=== PATIENT | male | born 1965 | race Caucasian/White ===

== ENCOUNTER → 2020-04-19 13:23 | Outpatient (BNVA) | payer OTHER, SELFPAY | PROVIDERS: PCP Physician Assistant; Visit Provider Urology | DX: Z76.89 Persons encountering health services in other specified circumstances (principal) ==

== ENCOUNTER → 2020-11-01 11:41 | Outpatient (BNVA) | payer OTHER, SELFPAY | PROVIDERS: PCP Physician Assistant; Visit Provider Internal Medicine Pulmonary Disease | DX: J44.9 Chronic obstructive pulmonary disease, unspecified (principal); J44.1 Chronic obstructive pulmonary disease with (acute) exacerbation | CPT/HCPCS: 99212 ==

== ENCOUNTER → 2021-02-27 14:28 | Outpatient (BNVA) | payer OTHER, SELFPAY | PROVIDERS: PCP Physician Assistant; Visit Provider Internal Medicine | DX: J44.1 Chronic obstructive pulmonary disease with (acute) exacerbation (principal); J44.9 Chronic obstructive pulmonary disease, unspecified | CPT/HCPCS: 99212 ==

== ENCOUNTER 2021-05-21 08:35 | Outpatient (REF) | payer OTHER, SELFPAY ==
[2021-05-26 17:51] LABS: Testosterone, Free 7.1 pg/mL (35.0-155.0); Testosterone, Total 85 ng/dL (250-1100)
== END 2021-05-21 08:36 | disposition home or self-care (01) ==
LOC: HO.LAB 08:35
PROVIDERS: PCP Physician Assistant; Visit Provider Urology
DX: E29.1 Testicular hypofunction (principal); N30.10 Interstitial cystitis (chronic) without hematuria
CPT/HCPCS: 36415; 84402; 84403; 99202

== ENCOUNTER 2021-09-24 06:14 | Outpatient (REF) | payer OTHER, SELFPAY ==
[2021-09-24 06:27] LABS: MANUAL DIFF FLAG NO
[2021-09-24 07:27] LABS: Basophils Absolute Auto 0.1 X10*3/uL (0.0-0.2); Eosinophils Absolute Auto 0.4 X10*3/uL (0.0-0.4); Eosinophils Percent Auto 5.5 % (0-4); Hematocrit 50.7 % (42.0-52.0); Hemoglobin 16.5 g/dl (14.0-18.0); Imm Gran Abs Auto 0.02 X10*3/uL (0.00-0.03); Imm Gran Pct Auto 0.3 % (0.0-0.4); Lymphocytes Absolute Auto 2.4 X10*3/uL (1.2-4.9); Lymphocytes Percent Auto 30.9 % (20-40); Mean Corpuscular HGB Conc 32.5 g/dl (31.0-36.0); Mean Corpuscular Hemoglobin 28.1 pg (27.0-33.0); Mean Corpuscular Volume 86.2 fL (80.0-98.0); Mean Platelet Volume 11.2 fL (9.4-12.4); Monocytes Absolute Auto 0.8 X10*3/uL (0.1-1.2); Monocytes Percent Auto 10.1 % (2-11); Neutrophils Percent Auto 52.2 % (45-73); Platelet Count 194 X10*3/uL (160-400); Red Blood Count 5.88 X10*6/uL (4.60-5.80); Red Cell Distribution Width 14.3 % (11.0-16.0); White Blood Count 7.6 X10*3/uL (4.8-10.8)
[2021-09-24 07:33] LABS: Estimated Average Glucose 126 mg/dL
[2021-09-24 08:08] LABS: Alanine Aminotransferase 127 U/L (0-40); Albumin Level 4.6 g/dL (3.5-5.0); Alkaline Phosphatase 103 U/L (39-117); Anion Gap 13 (12-20); Aspartate Amino Transferase 61 U/L (5-37); Bilirubin Total 0.5 mg/dL (0.0-1.0); Blood Urea Nitrogen 15 mg/dL (9-16); Calcium 9.2 mg/dL (8.4-10.2); Carbon Dioxide 28 mmol/L (22-29); Chloride 101 mmol/L (96-108); Estimated Glomerular Filt Rate > 60; Glucose Random 133 mg/dL (60-115); Potassium 4.3 mmol/L (3.3-5.1); Sodium 138 mmol/L (135-145); Total Protein 7.5 g/dL (6.5-8.0)
[2021-09-24 08:42] LABS: Free T4 (Free Thyroxine) 1.16 ng/dL (0.71-1.85); Thyroid Stimulating Hormone 2.46 uIU/mL (0.32-4.0)
== END 2021-09-24 06:15 | disposition home or self-care (01) ==
LOC: HO.LAB 06:14
PROVIDERS: PCP Physician Assistant; Visit Provider Nurse Practitioner Family
DX: R11.0 Nausea (principal); Z13.1 Encounter for screening for diabetes mellitus; Z13.29 Encounter for screening for other suspected endocrine disorder
CPT/HCPCS: 36415; 80053; 83036; 84439; 84443; 85025

== ENCOUNTER → 2022-05-19 11:22 | Outpatient (BNVA) | payer OTHER, SELFPAY | PROVIDERS: PCP Physician Assistant; Visit Provider Nurse Practitioner Family | DX: E29.1 Testicular hypofunction (principal); N40.0 Benign prostatic hyperplasia without lower urinary tract symptoms; Z79.899 Other long term (current) drug therapy | CPT/HCPCS: 99212 ==

== ENCOUNTER 2022-06-13 08:51 | Outpatient (REF) | payer OTHER, SELFPAY ==
--- NOTE | ~2022-06-13 | US_ITS ---
EXAMINATION: US ABDOMEN COMPLETE CLINICAL INFORMATION: Abnormal levels of other serum enzymes. COMPARISON: X-ray abdomen KUB 07/04/2017. CT abdomen and pelvis 06/26/2017. TECHNIQUE: Real-time imaging of the abdominal viscera. Technically difficult study secondary to bowel gas and body habitus. FINDINGS: PANCREAS: The visualized portions of the pancreas are unremarkable but a large portion of the body and tail obscured by bowel gas. ABDOMINAL AORTA: The proximal, mid, and distal segments are normal in caliber. INFERIOR VENA CAVA: Visualized portions are normal. LIVER: Liver appears enlarged and demonstrates increased echogenicity consistent with hepatic steatosis. The liver contour is normal. A benign 1.4 cm simple cyst is noted in the left lobe. No solid hepatic masses. There is no intrahepatic biliary duct dilatation seen. GALLBLADDER: Surgically absent. COMMON BILE DUCT: Normal in caliber measuring 1.1 cm in diameter. RIGHT KIDNEY: Normal. No hydronephrosis. No renal calculi or focal parenchymal lesions. The kidney measures 10.1 cm in maximum dimension. LEFT KIDNEY: Normal. No hydronephrosis. No renal calculi or focal parenchymal lesions. The kidney measures 11.5 cm in maximum dimension. SPLEEN: Normal. The spleen measures 11.5 cm in maximum dimension. FREE FLUID: None. US/US abdomen complete IMPRESSION: Enlarged fatty liver.
== END 2022-06-13 08:52 | disposition home or self-care (01) ==
LOC: HO.US 08:51
PROVIDERS: PCP Physician Assistant; Visit Provider Physician Assistant
DX: R74.8 Abnormal levels of other serum enzymes (principal)
CPT/HCPCS: 76700

== ENCOUNTER 2022-07-22 12:27 | Outpatient (REF) | payer OTHER, SELFPAY ==
[2022-07-22 13:12] LABS: Hematocrit 47.5 % (42.0-52.0); Hemoglobin 15.1 g/dl (14.0-18.0); Mean Corpuscular HGB Conc 31.8 g/dl (31.0-36.0); Mean Corpuscular Volume 84.8 fL (80.0-98.0); Mean Platelet Volume 10.2 fL (9.4-12.4); Platelet Count 235 X10*3/uL (160-400); Red Cell Distribution Width 13.5 % (11.0-16.0)
[2022-07-22 13:35] LABS: Estimated Average Glucose 134 mg/dL; Hemoglobin A1c % 6.3 %
[2022-07-22 14:04] LABS: Alanine Aminotransferase 41 U/L (0-40); Albumin Level 4.5 g/dL (3.5-5.0); Alkaline Phosphatase 103 U/L (39-117); Anion Gap 14 (12-20); Aspartate Amino Transferase 35 U/L (5-37); Bilirubin Total 0.5 mg/dL (0.0-1.0); Blood Urea Nitrogen 14 mg/dL (9-16); Calcium 9.1 mg/dL (8.4-10.2); Carbon Dioxide 27 mmol/L (22-29); Chloride 103 mmol/L (96-108); Cholesterol 168 mg/dL; Estimated Glomerular Filt Rate > 60; Glucose Random 97 mg/dL (60-115); HDL Cholesterol 37 mg/dL; LDL Cholesterol Calculated 101 mg/dl; Potassium 4.6 mmol/L (3.3-5.1); Sodium 139 mmol/L (135-145); Total Protein 7.3 g/dL (6.5-8.0); Triglycerides 152 mg/dL
[2022-07-22 14:20] LABS: TSH reflex Free T4 1.62 uIU/mL (0.32-4.0)
== END 2022-07-22 12:28 | disposition home or self-care (01) ==
LOC: HO.LAB 12:27
PROVIDERS: Absent Provider Nurse Practitioner Family; PCP Physician Assistant; Visit Provider Nurse Practitioner Family
DX: Z13.220 Encounter for screening for lipoid disorders (principal); Z13.29 Encounter for screening for other suspected endocrine disorder; E29.1 Testicular hypofunction
CPT/HCPCS: 36415; 80053; 80061; 83036; 84402; 84403; 84443; 85027

== ENCOUNTER 2022-07-23 16:20 | Outpatient (REF) | payer OTHER, SELFPAY ==
[2022-07-29 11:28] LABS: Testosterone, Free 87.1 pg/mL (35.0-155.0); Testosterone, Total 569 ng/dL (250-1100)
== END 2022-07-23 16:21 | disposition home or self-care (01) ==
LOC: HO.LAB 16:20
PROVIDERS: Visit Provider Nurse Practitioner Family
DX: E29.1 Testicular hypofunction (principal)
CPT/HCPCS: 36415; 84402; 84403

== ENCOUNTER → 2022-07-30 15:29 | Outpatient (BNVA) | payer OTHER, SELFPAY | PROVIDERS: PCP Physician Assistant; Visit Provider Nurse Practitioner Family | DX: E29.1 Testicular hypofunction (principal); R35.1 Nocturia; N40.0 Benign prostatic hyperplasia without lower urinary tract symptoms; N30.10 Interstitial cystitis (chronic) without hematuria; U07.0 Vaping-related disorder; Z87.891 Personal history of nicotine dependence | CPT/HCPCS: 99212 ==

== ENCOUNTER 2022-08-20 08:02 | Outpatient (REF) | payer OTHER, SELFPAY ==
--- NOTE | 2022-08-20 09:32 | PFT_ITS ---
INDICATION: COPD. SPIROMETRY: FEV1 to FVC prebronchodilator 67%, postbronchodilator 73% with an FEV1 of 1.13 L, which is 90% predicted. An FVC of 4.28 L, which is 94% predicted. There was a significant response to bronchodilators noted. Maximum voluntary ventilation 46% predicted. LUNG VOLUMES: Patient had hard time completing. Expiratory reserve volume noted to be 68% predicted. DIFFUSION CAPACITY: DLCO 75% predicted. COMPARISONS: None. INTERPRETATION: There appears to be reversible obstructive ventilatory defect consistent with diagnosis of asthma. The patient likely carries a diagnosis of asthma-COPD overlap syndrome. There was a significant response to bronchodilators noted and significant small airways disease. There is also a [id number] decrease in the maximum voluntary ventilation secondary to likely deconditioning, but also likely a component of air trapping. Again, the lung volumes cannot be completed as the patient could not complete the maneuver and there was a mild diffusion impairment. Clinical correlation warranted. MD CLAY Law/MODIsh / [id number]
== END 2022-08-20 08:03 | disposition home or self-care (01) ==
LOC: HO.RESP 08:02
PROVIDERS: PCP Physician Assistant; Visit Provider Internal Medicine Pulmonary Disease
DX: J44.9 Chronic obstructive pulmonary disease, unspecified (principal)
CPT/HCPCS: 94010; 94729

== ENCOUNTER 2022-08-21 | Outpatient (REF) | payer OTHER, SELFPAY | END 2022-08-21 00:01 | LOC: CF | PROVIDERS: PCP Physician Assistant; Visit Provider Internal Medicine Pulmonary Disease | DX: J44.9 Chronic obstructive pulmonary disease, unspecified (principal); R91.8 Other nonspecific abnormal finding of lung field | CPT/HCPCS: 99212 ==

== ENCOUNTER 2024-01-14 10:55 | Outpatient (AMB) | payer OTHER, SELFPAY ==
--- OUTSIDE RECORDS SUMMARY | 2024-01-14 10:57 | XMS_ITS | Continuity of Care Document ---
Author Organization [facility] Address [address] [place] [address]- Care Team Providers Care Sawmill Tally Clerk Name Role Phone Robb Correia Primary Care Physician [place] [facility] [place]09/20 [facility] [address] [place] [id number] Allergies, Adverse Reactions, Alerts Substance Reaction Severity Status NKA Active Immunizations Given and Recorded Vaccine Date Status Refusal Reason pneumococcal 23-valent vaccine 04/21/15 Given Medications 20mg/0.3mL 20mg/0.3mL, See Instructions, # 1 kit, Refills 0, Tot. Refills 0, Maintenance, 20mg/0.3mL in a 0.6mL dropper - Fill 0.6 mL dropper and add to prep 12 times for a total of 480mg of simethicone, 08/02/20 10:47:00 EDT, Supply, 172, cm, 05/29/20 10:02:00... Start Date: 08/02/20 Status: Ordered atenolol 25 mg oral tablet 25 mg, 1, tablet, By Mouth, Daily, Refills 0, Maintenance, 11/22/15 17:39:32 Start Date: 11/22/15 Status: Ordered lisinopril 5 mg oral tablet 5 mg, 1, tablet, By Mouth, Daily, Refills 0, Maintenance, 11/22/15 17:39:49 Start Date: 11/22/15 Status: Ordered pantoprazole 40 mg oral delayed release tablet 1 tablet = 40 mg, By Mouth, Daily, # 30 tablet, 3 Refills, Maintenance, 05/29/20 20:07:00 EST, CR Tablet, 172, cm, 05/29/20 10:02:00 EST, Height, 82.5, kg, 05/29/20 10:02:00 EST, Dry Weight Start Date: 05/29/20 Stop Date: 09/26/20 Status: Ordered PEG-3350 with Electrolytes (Eqv-NuLYTELY) oral powder for reconstitution See Instructions, as directed, # 2 each, 0 Refills, Maintenance, 08/02/20 10:47:00 EDT, [facility]/pharmacy #[id number], Ok to sub for any gallon prep; NEEDS TWO (2) GALLONS; procedure is 5/6, as directed, 172, cm, 05/29/20 10:02:00 EST, Height, 82.5, kg, 05/29/20... Start Date: 08/02/20 Status: Ordered polyethylene glycol 3350 oral powder for reconstitution = 17 Gm, By Mouth, Daily, dissolve in water before taking, # 255 Gm, 0 Refills, Maintenance, 10/05/17 9:24:09 EDT, REC Powder Start Date: 10/05/17 Status: Ordered ProAir HFA 90 mcg/inh inhalation aerosol with adapter 2, puffs, Inhalation, Every 4 hours, PRN, # 8.5 Gm, Refills 0, Maintenance, 02/07/17 19:57:43, Aerosol Start Date: 02/07/17 Status: Ordered testosterone 50 mg/5 g (1%) transdermal gel 1 each, Topically, Daily in AM, 2 pumps each arm, # 30 each, 0 Refills, Maintenance, 05/29/20 9:56:00 EST, Gel, Partial fill upon patient request if the prescription is for a schedule II opioid drug. Start Date: 05/29/20 Status: Ordered Wellbutrin SR 150 mg/12 hours oral tablet, extended release 1 tablet = 150 mg, By Mouth, 2 times a day, # 60 tablet, 0 Refills, Maintenance, 04/12/19 15:54:00 EST, ER Tablet Start Date: 04/12/19 Status: Ordered Social History Social History Type Response Smoking Status Current every day pierre hutchinson; Tobacco use times per day: 1/2ppd cigarettes; entered on: 11/22/15 Sex
--- OUTSIDE RECORDS SUMMARY | 2024-01-14 10:57 | XMS_ITS | Continuity of Care Document ---
Author Organization [facility] Address [address] [place] [address] [address] [place] [address]- Care Team Providers Care Track Greaser Name Role Phone Robb Correia Primary Care Physician [phone] Encounter [facility] Date(s): 04/12/19 - 04/19/19 [facility] [address] [place] [address]- [place] States Encounter Diagnosis Abdominal pain in male(Discharge Diagnosis) - 04/19/19 Attending Physician: Spencer Lynch MD Referring Physician: Robb Correia Allergies, Adverse Reactions, Alerts Substance Reaction Severity Status gabapentin Active benzodiazepines go crazy Persistent Moderate Activ e Ativan dementia Active Immunizations Given and Recorded Vaccine Date Status Refusal Reason pneumococcal 23-valent vaccine 04/21/15 Given Medications atenolol 25 mg oral tablet 25 mg, 1, tablet, By Mouth, Daily, Refills 0, Maintenance, 11/22/15 17:39:32 Start Date: 11/22/15 Status: Ordered lisinopril 5 mg oral tablet 5 mg, 1, tablet, By Mouth, Daily, Refills 0, Maintenance, 11/22/15 17:39:49 Start Date: 11/22/15 Status: Ordered Nexium 20 mg oral enteric coated capsule 2 capsule = 40 mg, By Mouth, Daily, # 60 capsule, 1 Refills, Maintenance, 04/12/19 16:15:00 EST, ECCapsule, [id number], 172, cm, 04/12/19 15:50:00 EST, Height Start Date: 04/12/19 Status: Ordered polyethylene glycol 3350 oral powder for reconstitution = 17 Gm, By Mouth, Daily, dissolve in water before taking, # 255 Gm, 0 Refills, Maintenance, 10/05/17 9:24:09 EDT, REC Powder Start Date: 10/05/17 Status: Ordered Prilosec 20 mg oral enteric coated capsule 1 capsule = 20 mg, By Mouth, 2 times a day, # 30 capsule, 0 Refills, Maintenance, 02/26/11 12:43:23, EC Capsule Start Date: 02/26/11 Status: Ordered ProAir HFA 90 mcg/inh inhalation aerosol with adapter 2, puffs, Inhalation, Every 4 hours, PRN, # 8.5 Gm, Refills 0, Maintenance, 02/07/17 19:57:43, Aerosol Start Date: 02/07/17 Status: Ordered Reglan 10 mg oral tablet 1 tablet = 10 mg, By Mouth, 4 times a day, # 120 tablet, 1 Refills, Acute 05/13/19 16:15:00 EST, 04/12/19 16:15:00 EST, Tablet, [facility]/pharmacy #[id number], 172, cm, 04/12/19 15:50:00 EST, Height Start Date: 04/12/19 Stop Date: 05/13/19 Status: Ordered Senna 8.6 mg oral tablet 17.2 mg, 2, tablet, By Mouth, 2 times a day, PRN, # 100 tablet, Refills 1, Tot. Refills 1, Acute, for constipation, 05/13/20 16:16:00 EST, 04/12/19 16:15:00 EST, Route to Pharmacy Electronically, [facility]/pharmacy #[id number] Tablet, 172, cm, 04/12/19 15:50:00 E... Start Date: 04/12/19 Stop Date: 05/13/20 Status: Ordered Wellbutrin SR 150 mg/12 hours oral tablet, extended release 1 tablet = 150 mg, By Mouth, 2 times a day, # 60 tablet, 0 Refills, Maintenance, 04/12/19 15:54:00 EST, ER Tablet Start Date: 04/12/19 Status: Ordered Zantac 300 oral tablet 1 tablet = 300 mg, By Mouth, Daily at bedtime, 0 Refills, Maintenance, 04/16/15 16:12:02 Start Date: 04/16/15 Status: Ordered Problem List Diagnosis Diagnosis Type Effective Dates Health Status Cl inical Service Informant Abdominal pain in male Discharge Diagnosis 04/19/19 Vital Signs Most recent to oldest [Reference Range]: 1 Height 172 cm (04/12/19 3:50 PM) Oxygen Saturation [94-100 %] 97 % (04/12/19 3:50 PM) Pulse Rate [55-90 bpm] 92 bpm *H* (04/12/19 3:50 PM) Blood Pressure [90-138/55-84 mm Hg] 130/ 88mm Hg (04/12/19 3:50 PM) Temperature [96.8-100.4 DegF] 98.9 DegF (04/12/19 3:50 PM) Mode of Delivery (Oxygen) Room air (04/12/19 3:50 PM) Blood pressure sites Arm, right (04/12/19 3:50 PM) Temperature Route Oral (04/12/19 3:50 PM) Social History Social History Type Response Smoking Status Current every day pierre hutchinson; Tobacco use times per day: 1/2ppd cigarettes; entered on: 11/22/15 Sex
--- OUTSIDE RECORDS SUMMARY | 2024-01-14 10:57 | XMS_ITS | Continuity of Care Document ---
Author Organization [facility] Address [address] [place] [address]- Care Team Providers Care Hydrogeology Professor Name Role Phone Robb Correia Primary Care Physician Encounter [facility] [place] Date(s): 02/28/20 - 03/29/20 [facility] [address] [place] [id number] Attending Physician: Malou Rich Admitting Physician: Admtr, Malou Referring Physician: Admtr, Ar8 Allergies, Adverse Reactions, Alerts Substance Reaction Severity [...] EST, Height Start Date: 04/12/19 Status: Ordered omeprazole 40 mg oral enteric coated capsule 1 capsule = 40 mg, By Mouth, 2 times a day, # 60 capsule, 0 Refills, Maintenance, 02/28/20 14:55:00EST, EC Capsule, [id number], Partial fill upon patient request, 172, cm, 02/28/20 13:21:00 EST, Height Start Date: 02/28/20 Stop Date: 03/29/20 Status: Ordered Plenvu oral powder for reconstitution See Instructions, split dose 1/2 dose day before 1/2 dose day of procedure (7hrs before procedure),# 1,000 mL, 0 Refills, Maintenance, 02/28/20 14:55:00 EST, [facility]/pharmacy #[id number], Partial fill upon patient request, split dose ; 1/2 dose day before;... Start Date: 02/28/20 Status: Ordered polyethylene glycol 3350 oral powder [...] 19:57:43, Aerosol Start Date: 02/07/17 Status: Ordered Senna 8.6 mg oral tablet 17.2 mg, 2, tablet, By Mouth, 2 times a day, PRN, # 100 tablet, Refills 1, Tot. Refills 1, Acute, as needed for constipation, 07/18/20 10:30:00 EDT, 07/18/19 16:16:00 EDT, Route to Pharmacy Electronically, [facility]/pharmacy #[id number] Tablet, 172, cm, 05/03/19... Start Date: 07/18/19 Stop Date: 07/18/20 Status: Ordered Senna 8.6 mg oral tablet 17.2 mg, 2, tablet, By Mouth, 2 times a day, PRN, # 100 tablet, Refills 1, Tot. Refills 1, Acute, for constipation, 05/13/20 16:16:00 EST, 04/12/19 16:15:00 EST, Route to Pharmacy Electronically, [facility]/pharmacy #[id number] Tablet, 172, cm, 04/12/19 15:50:00 E... Start [...] 04/16/15 16:12:02 Start Date: 04/16/15 Status: Ordered Social History Social History Type Response Smoking Status Current every day pierre hutchinson; Tobacco use times per day: 1/2ppd cigarettes; entered on: 11/22/15 Sex
--- OUTSIDE RECORDS SUMMARY | 2024-01-14 10:57 | XMS_ITS | Continuity of Care Document ---
Author Organization [facility] Address [address] [place] [address]- Care Team Providers Care Certified Registered Nurse Anesthetist Name Role Phone Robb Correia Primary Care Physician [phone] Encounter [facility] Date(s): 04/07/19 - 04/07/[address] [address]- [facility] Discharge Disposition: A-D/C Home Attending Physician: Niko Dorantes MD Admitting Physician: Niko Dorantes MD Referring Physician: Not on Staff, Referring MD Allergies, Adverse Reactions, Alerts Substance Reaction Severity [...] 11/22/15 17:39:49 Start Date: 11/22/15 Status: Ordered polyethylene glycol 3350 oral powder [...] 19:57:43, Aerosol Start Date: 02/07/17 Status: Ordered Zantac 300 oral tablet 1 tablet = 300 mg, By Mouth, Daily at bedtime, 0 Refills, Maintenance, 04/16/15 16:12:02 Start Date: 04/16/15 Status: Ordered Vital Signs Most recent to oldest [Reference Range]: 1 2 3 Oxygen Saturation [94-100 %] 98 % (04/07/19 5:15 PM) 96 % (04/07/19 12:51 PM) Pulse Rate [55-90 bpm] 84 bpm (04/07/19 5:15 PM) 88 bpm (04/07/19 1:53 PM) 87 bpm (04/07/19 12:51 PM) Blood Pressure [90-138/55-84 mm Hg] 106/58mm Hg (04/07/19 5:15 PM) 123/79mm Hg (04/07/19 1:53 PM) 139/83mm Hg *H* (04/07/19 12:51 PM) Respiratory Rate [16-30 br/min] 19 br/min (04/07/19 5:43 PM) 19 br/min (04/07/19 5:15 PM) 21 br/min (04/07/19 3:58 PM) Temperature [96.8-100.4 DegF] 98.3 DegF (04/07/19 12:51 PM) Liters per Minute 0 L/min (04/07/19 12:51 PM) Mode of Delivery (Oxygen) Room air (04/07/19 5:15 PM) Room air (04/07/19 12:51 PM) Blood pressure sites Arm, right (04/07/19 12:51 PM) Temperature Route Oral (04/07/19 12:51 PM) Social History Social History Type Response Smoking Status Current every day pierre hutchinson; Tobacco use times per day: 1/2ppd cigarettes; entered on: 11/22/15 Sex
--- OUTSIDE RECORDS SUMMARY | 2024-01-14 10:58 | XMS_ITS | Continuity of Care Document ---
Author Organization [facility] Address [address] [place] [address] [address] [place] [address]- Care Team Providers Care Protein Scientist Name Role Phone Robb Correia Primary Care Physician [phone] [place] [facility] [place](s): 05/03/19 - 05/13/[address] [place] [address]- [facility] Attending Physician: Malou Rich Admitting Physician: Malou Rich Referring Physician: AdmtrMalou Allergies, Adverse Reactions, Alerts Substance Reaction Severity [...] 04/12/19 16:15:00 EST, Route to Pharmacy Electronically, [facility]/pharmacy #[id number] Tablet, 172, cm, 04/12/19 15:50:00 E... [...]
--- OUTSIDE RECORDS SUMMARY | 2024-01-14 10:58 | XMS_ITS | Continuity of Care Document ---
Author Organization [facility] Address [address] [place] [address]- Care Team Providers Care Econometrician Name Role Phone Robb Correia Primary Care Physician [phone] Encounter [facility] [place] Date(s): 05/30/20 - 06/29/20 [facility] [address] [place] [id number] Allergies, Adverse Reactions, Alerts Substance Reaction Severity [...] Date: 05/29/20 Stop Date: 09/26/20 Status: Ordered polyethylene glycol 3350 oral powder [...]
--- OUTSIDE RECORDS SUMMARY | 2024-01-14 10:58 | XMS_ITS | Continuity of Care Document ---
Author Organization [facility] Address [address] [place] [address]- Care Team Providers Care Telephone Interviewer Name Role Phone Robb Correia Primary Care Physician [phone] [place] [facility] [place](s): 09/17/22 - 10/17/22 [facility] [address] [place] [address]- [place] Allergies, Adverse Reactions, Alerts No Known Allergies Immunizations Given and Recorded Vaccine Date Status [...] 11/22/15 17:39:32 Start Date: 11/22/15 Status: Ordered Gaviscon Extra Strength 254 mg-237.5 mg/5 mL oral suspension See Instructions, PRN for indigestion, 20 mL By Mouth 3 times a day for heartburn or regurgitation., # 355 mL, 1 Refills, Maintenance, 08/16/20 13:09:00 EDT, Suspension, [id number], Partial fill upon patient request if the prescription is for... Start Date: 08/16/20 Status: Ordered lisinopril 5 mg oral tablet 5 mg, 1, tablet, By Mouth, Daily, Refills 0, Maintenance, 11/22/15 17:39:49 Start Date: 11/22/15 Status: Ordered pantoprazole 40 mg oral delayed release tablet 1 tablet = 40 mg, By Mouth, 2 times a day, # 60 tablet, 3 Refills, Maintenance, 08/16/20 13:08:00 EDT, CR Tablet, 172.7, cm, 08/16/20 12:24:00 EDT, Height, 82.5, kg, 05/29/20 10:02:00 EST, Dry Weight Start Date: 08/16/20 Stop Date: 12/14/20 Status: Ordered PEG-3350 with Electrolytes (Eqv-NuLYTELY) oral powder for reconstitution See Instructions, as directed, # 2 each, 0 Refills, Maintenance, 08/02/20 10:47:00 EDT, [facility]/pharmacy #[id number], Ok to sub for any gallon prep; NEEDS TWO (2) GALLONS; procedure is 5/, as directed, 172, cm, 05/29/20 10:02:00 EST, [...] Type Response Smoking Status Current every day sm oker; Tobacco use times per day: 1/2ppd cigarettes; entered on: 11/22/15 Sex Patient Care team information Care Team Personnel Name: Pratik Carlin RN Position: S RN Member Role: Primary Care Nurse Name: Robb Correia Position: Reference Physician Member Role: PCP Address: Address: [address] [place] [address] [address] [place], [place] [address] Name: Jonelle Godfrey RN Position: [facility] OB RN Member Role: Primary Care Nurse Name: Niya Lewis RN Position: [facility] SN RN Member Role: Primary Care Nurse Name: Angelica Castillo RN Position: S RN Member Role: Primary Care Nurse Name: Annie Marvin RN Position: [facility] SN RN Member Role: Primary Care Nurse Name: Nakia Godinez RN Position: S RN Member Role: Primary Care Nurse Name: Shannon Rey Position: S RN Member Role: Primary Care Nurse Care Team Related Persons Name: BIACELSO Address: [address] [address]
--- OUTSIDE RECORDS SUMMARY | 2024-01-14 10:58 | XMS_ITS | Continuity of Care Document ---
Author Organization [facility] Address [address] [place] [address]- Care Team Providers Care Production Line Worker Name Role Phone Robb Correia Primary Care Physician [phone] [place] [facility]06[place]20 - 07/06/20 [facility] [address] [place] [id number] Allergies, Adverse Reactions, Alerts Substance [...]
--- OUTSIDE RECORDS SUMMARY | 2024-01-14 10:58 | XMS_ITS | Continuity of Care Document ---
Author Organization [facility] Address [address] [place] [address] [address] [place] [address]- Care Team Providers Care Computer Typesetter Keyliner Name Role Phone Robb Correia Primary Care Physician Encounter [facility] Date(s): 05/03/19 - 05/10/[address] [place] [address]- [place] States Encounter Diagnosis Abdominal pain(Discharge Diagnosis) - 05/03/19 Attending Physician: Spencer Lynch MD Referring Physician: Not on Staff, Referring [...] 05/13/19 16:15:00 EST, 04/12/19 16:15:00 EST, Tablet, [facility]/pharmacy #[id number], 172, cm, 04/12/19 15:50:00 EST, Height Start Date: 04/12/19 Stop Date: 05/13/19 Status: Ordered Senna 8.6 mg oral tablet 17.2 mg, 2, tablet, By Mouth, 2 times a day, PRN, # 100 tablet, Refills 1, Tot. Refills 1, Acute, for constipation, 05/13/20 16:16:00 EST, 04/12/19 16:15:00 EST, Route to Pharmacy Electronically, [facility]/pharmacy #[id number] Tablet, 172, cm, 04/12/19 15:50:00 E... [...] Status Cl inical Service Informant Abdominal pain Discharge Diagnosis 05/03/19 Vital Signs Most recent to oldest [Reference Range]: 1 Height 172 cm (05/03/19 3:44 PM) Pulse Rate [55-90 bpm] 75 bpm (05/03/19 3:44 PM) Blood Pressure [90-138/55-84 mm Hg] 125/ 81mm Hg (05/03/19 3:44 PM) Blood pressure sites Arm, right (05/03/19 3:44 PM) Social History Social History Type Response Smoking Status Current every day pierre hutchinson; Tobacco use times per day: 1/2ppd cigarettes; entered on: 11/22/15 Sex
[2024-01-14 10:59] VITALS: BP 102/56; PULSE 74; O2SAT 96; BMI 29.2
--- NOTE | 2024-01-14 10:59 | MHC.PC.OV ---
Vital Signs 01/14/24 10:59 Height 5 ft 9 in Weight 198 lb BMI 29.2 BP 102/56 L Blood Pressure Location Lt brachial Position Sitting Pulse 74 Pulse Source Pulse Oximeter Pulse Oximetry (%) 96 Oxygen Delivery Method Room Air Intake Visit Reasons: OVERDUE ANNUAL PE Intake Note: Patient is here today for a physical. Pt refuse flu vaccine. Foundation Maker Required: No Accompanied by: Self / Same As Patient Allergies lorazepam [Ativan] Allergy (Unknown, Verified 01/14/24 11:09) Unknown Benzodiazepines [BENZODIAZEPINES] Adverse Reaction (Unknown, Verified 01/14/24 11:09) ALTERED MENTAL STATUS gabapentin [GABAPENTIN] Adverse Reaction (Unknown, Verified 01/14/24 11:09) AGITATION Suprep Bowel Prep Allergy (Unknown, Uncoded 01/14/24 11:09) severe abd pain Medication List - Last Reconciled 01/14/24 by Robb Jones PA-C albuterol sulfate 1.25 mg (3 mL) inhalation Q4-6H PRN 10 days albuterol sulfate 90 mcg/actuation 2 puffs inhalation Q4-6H PRN 30 days atenolol 25 mg PO DAILY blood pressure test kit-medium As directed doxepin 50 mg PO BEDTIME famotidine 40 mg PO BEDTIME lisinopril 5 mg PO DAILY metformin 500 mg PO DAILY 30 days naloxone 4 mg/actuation intranasal nebulizers As directed ondansetron HCl 4 mg PO DAILY PRN pantoprazole 40 mg PO DAILY 90 days Symbicort 160-4.5 mcg/actuation (budesonide-formoterol) 2 puffs inhalation Q12H 30 days NS tadalafil (Cialis) 5 mg PO DAILY 90 days testosterone 3 pumps topical DAILY 30 days tiotropium bromide 2.5 mcg/actuation (Spiriva Respimat) 2 puffs inhalation DAILY 30 days Tobacco use date assessed: 01/14/24 Dental Screening Dental Screen Date: 01/14/24 Did you have a dental visit in the last 12 months?: Yes Did you have a dental problem in the last 6 months where you did not have access to dental care?: No Was dental information given to patient?: Patient has dentist HPI OVERDUE ANNUAL PE HPI Details Patient is a 50-year-old male here today for routine annual physical. Patient's past medical history significant for COPD, asthma, GERD, BPH, hypogonadism. HAS BEEN HAVING SOME ISSUES WITH HOUSING, RECENTLY TRIED TO MOVE TO [place] THOUGH DID NOT WORK OUT. CURRENTLY LIVING IN [facility] AND LOOKING FOR HOUSING BACK IN [facility]. Concerns--> Report having Vomiting episodes also having a productive cough , he is afraid he may have aspirated PLAN: Will send for chest x-ray .. Hypogonadism: Was previously on topical testosterone treatment and daily use of Cialis 5 mg. Has lost follow-up again with his urologist. He reports he has been feeling energy, low libido and generally tired. He would like to restart his testosterone therapy. He is willing to reestablish care with Urology. .. Hypertension: Blood pressure today in office acceptable. Continues on lisinopril and atenolol decent affect on his blood pressure. .. Impaired glucose metabolism: Patient continues on metformin 500 daily. Today's A1c is 6.1. Does admit to some dietary indiscretion as he has been having some personal issues. .. COPD/asthma: Patient is a former smoker. Was followed by [place] [facility] pulmonology though has lost follow-up. Does a rescue inhaler and a few maintenance inhalers he needs refills on. He reports recently having some vomiting episodes due to a GI issue though feels he may aspirated. Last night reports a productive cough. He mentions needing MRI of his lungs though will follow up with pulmonology on this. Physical exam today without any crackles or wheezing. Will send for x-ray to evaluate for any pulmonary infiltrate. Colorectal cancer screening: Was followed by gastroenterology, has been unable to tolerate bowel prep-willing to do Cologuard Vaccines: Up-to-date with COVID vaccine, considering pneumonia and flu vaccine [facility] Medical History Fatty liver Gross hematuria Hypogonadism in male Delayed gastric emptying Urge incontinence Interstitial cystitis Bladder mass Abdominal pain Small bowel obstruction due to adhesions Surgical History History of lumbar discectomy S/P trigger finger release History of cystoscopy History of endoscopy Family History Father Lung cancer Hypertension Mother Lung cancer Diabetes Breast cancer Sister Diabetes Sister No problems noted. Family/Other Mental health disorder Social History Housing: House Alcohol intake: never Patient Tobacco Use Status: Former Tobacco user (1.5 years ago) Tobacco use type: Smokeless Tobacco Cigarettes Per Day: 7 Years Smoked: Quit cigarettes, currently Vaping. e-Cigarette/Vaping Use: Currently Using service: Yes Current occupational status: disabled Cognitive needs: No Hearing needs: No Vision needs: No Questionnaire PHQ-9 Over the last 2 weeks, how often have you been bothered by any of the following problems? 1. Little interest or pleasure in doing things: not at all 2. Feeling down, depressed, or hopeless: not at all 3. Trouble falling or staying asleep, or sleeping too much: not at all 4. Feeling tired or having little energy: not at all 5. Poor appetite or overeating: not at all 6. Feeling bad about yourself - or that you are a failure or have let yourself or your family down: not at all 7. Trouble concentrating on things, such as reading the newspaper or watching television: not at all 8. Moving or speaking so slowly that other people could have noticed. Or the opposite - being so fidgety or restless that you have been moving around a lot more than usual: not at all 9. Thoughts that you would be better off or of hurting yourself in some way: not at all Total score: 0 Depression Screening Interpretation: Negative Depression Screening Done: Yes 29779 - PHQ-9 Billing: Yes Source: Developed by Drs. Seferino Kilpatrick, Zainab Royal, Emerson Samaniego and colleagues, with an educational yovana from [employer]. Thrive Questionnaire Date Thrive assessed: 01/14/24 I am a: Patient What is your living situation today?: I have a steady place to live Within the past 12 months, did the food you bought not last and you didn't have the money to get more?: Never true Within the past 12 months, did you worry whether your food would run out before you got money to buy more?: Never true Do you have trouble paying for medicines?: No Do you have trouble getting transportation to medical appointments?: No Do you have trouble paying your heating and electricity bill?: No Do you have trouble taking care of your child, family member or friend?: No Do you have trouble with day-to-day activities such as bathing, preparing meals, shopping, managing finances, etc.?: No Are you currently unemployed and looking for a job?: No Are you interested in more education?: No Please select the resources that you would like help with: None Currently or been in a relationship where the following occur: No concerns reported THRIVE Score: 0 AUDIT C Alcohol Use Questionnaire (AUDIT-C) 1. How often do you have a drink containing alcohol?: Never 3. How often do you have six or more drinks on one occasion?: Never Total Score: 0 Score Reviewed/Action Taken: No SHAYLA-7 AMB Questionnaire SHAYLA-7 Date SHAYLA - 7 assessed: 01/14/24 Feeling nervous, anxious, or on edge: 3 = Nearly every day Not being able to stop or control worryin = Nearly every day Worrying too much about different things: 3 = Nearly every day Trouble relaxin = Nearly every day Being so restless that it is hard to sit still: 2 = More than half the days Becoming easily annoyed or irritable: 3 = Nearly every day Feeling afraid as if something awful might happen: 3 = Nearly every day Total SHAYLA-7 score (0-4 normal; 5-9 mild; 10-14 moderate; 15-21 severe): 20 Source: Developed by Drs. Seferino Kilpatrick, Zainab Royal, Emerson Samaniego and colleagues, with an educational yovana from [employer]. SHAYLA-7 Assessment Billing SHAYLA-7 Assessment Tool: SHAYLA-7 Assessment 77214 Review of Systems Const Reports body aches, Denies chills, Denies excessive sweating, Reports fatigue, Denies fever(s) and Denies headache(s) Eyes Denies blurry vision ENT Denies dysphagia, Denies vertigo, Denies dizziness, Denies headache(s), Denies hearing loss and Denies tinnitus Card Denies chest pain, Denies chest pain with activity, Denies syncope, Denies irregular heart rhythm and Denies dyspnea Resp Denies chest congestion, Reports cough, Denies hemoptysis, Denies dyspnea and Denies wheezing GI Reports abdominal pain, Denies melena, Denies hematochezia, Denies coffee ground emesis, Denies dysphagia, Denies diarrhea, Denies nausea and Reports vomiting Denies difficulty urinating, Denies dysuria, Denies urinary frequency, Denies urinary hesitancy and Denies urinary urgency Musc Reports back pain, Denies arthralgias, Denies limited range of motion, Denies muscle cramps and Denies muscle weakness Skin/Breast Denies rash and Denies skin ulcer Neuro Denies Abnormal speech present, Denies confusion, Denies vertigo, Denies dizziness, Denies syncope, Denies headache(s), Denies memory loss and Denies seizure-like activity Psych Denies anxiety, Denies confusion, Denies depression, Denies memory loss, Denies panic attacks and Denies paranoia Endo Denies excessive sweating, Reports fatigue, Denies flushing, Denies polydipsia and Denies polyuria Aller/Immun Denies wheezing Physical exam (Primary Care) Vital Signs: Last Vital Signs Pulse 74 01/14/24 10:59 BP 102/56 L 01/14/24 10:59 Pulse Ox 96 01/14/24 10:59 Oxygen Delivery Method Room Air 01/14/24 10:59 BMI result Body Mass Index 29.2 Tobacco/Smoking Status: Tobacco use Status Tobacco use date assessed 01/14/24 01/14/24 11:05 Patient Tobacco Use Status Former Tobacco user (1.5 01/14/24 11:05 years ago) Tobacco use type Smokeless Tobacco 01/14/24 11:05 e-Cigarette/Vaping Use Currently Using 01/14/24 11:05 PHQ-9: PHQ-9 Score PHQ-9: Total score 0 01/14/24 11:11 Depression Screening Interpretation: Negative Thrive Assessment: Date of Thrive Assessment Date Thrive assessed 01/14/24 01/14/24 11:05 Currently or been in a relationship where the following occur: No concerns reported Const General: cooperative, comfortable, no acute distress, alert and awake; No confusion Orientation/consciousness: oriented to person, oriented to place, patient oriented x3 and No confusion HENMT Head: Yes normocephalic Ears: external ears normal and TM's normal bilaterally Face and sinus: No sinus tenderness Mouth: Normal oral and palatal mucosa present and tongue normal Teeth and gingiva: dentition normal and gingiva normal Throat: Yes posterior oropharynx normal, Yes tonsils normal and Yes uvula midline Eyes Conjunctivae: conjunctivae normal Sclerae: sclerae normal Pupils: Equal, round and reactive pupils present EOM: EOMs intact bilaterally Direct Ophthalmoscopy: No no photophobia Neck Neck: Yes no lymphadenopathy, No tender and Yes no JVD Thyroid: Thyroid normal Carotids: no bruits Chest Chest palpation & inspection: no tenderness Resp Effort & Inspection: normal respiratory effort, no audible wheezes, not labored and no stridor Auscultation: no crackles, no rales, no rhonchi and no wheezes Cardio Jugular venous distension: no JVD Rate: regular rate, not bradycardic and not tachycardic Rhythm: regular rhythm Bruits: no carotid bruits Peripheral pulses: Peripheral pulses 2+ throughout GI Inspection: Yes normal to inspection, No abdominal wall ecchymosis and No visible herniation Palpation (GI): Soft to palpation, nontender, no guarding, not rigid and No hepatosplenomegaly present Auscultation: normoactive bowel sounds General: Yes no CVA tenderness Back/Spine/Pelvis Back: no CVA tenderness and No back tenderness Cervical Spine: cervical ROM normal Thoracic/Lumbar Spine: thoracic and lumbar spine normal to inspection, straight leg raise negative bilaterally, No thoraco-lumbar ROM limited and No lumbar spinal tenderness Skin Lesions: no lesions Rashes: no rashes Wounds: no wounds Neuro General: oriented to person, oriented to place, patient oriented x3, CN's II-XI intact bilaterally and No confusion Cranial nerves: Yes Equal, round and reactive pupils present and Yes Normal accommodation reflex present Cognition (Neuro): normal cognition Speech: No Abnormal speech present Gait exam (Neuro): Normal gait present Motor exam (neuro): 5/5 motor strength present throughout Extrem Right upper extremity: full ROM; no cyanosis Left upper extremity: full ROM; no cyanosis Right lower extremity: no edema Left lower extremity: no edema Psych Appearance: grossly normal Mental Status: mental status grossly normal Affect: normal affect Attitude: cooperative Thought process: Normal thought process present Office Procedures Flu Questionnaire Does the patient have a severe egg allergy?: No Does the patient have severe life threatening allergies?: No Does the patient have a fever or illness today?: No Has the patient ever had Guillain-[place] Syndrome?: No Has the patient ever had any past reaction to a flu shot?: No Results AMB Hemoglobin A1c AMB Hemoglobin A1c 6.1 % Last Edit by REBECA Waggoner on 01/14/24 11:12 Immunizations Fluarix Triv [id number] (PF) 45 mcg (15 mcg x 3)/0.5 mL IM syringe Performing Provider: Robb Jones PA-C [facility] Documented (not given) by: REBECA Waggoner on 01/14/24 11:07 Reason Not Given: Patient Refused Results Reviewed Results Reviewed: Laboratory Last Values Hgb A1c (Clinic) 6.1 % (4.0-6.0) H 01/14/24 10:54 Coding Level of Care Code Est Pt Prev Care 40-64y(22147) Diagnoses Annual physical exam Z00.00 Primary hypertension I10 Hypertension type: primary hypertension Asthma-COPD overlap syndrome J44.9 Hypogonadism in male E29.1 Colon cancer screening Z12.11 Impaired glucose metabolism R73.09 Gastroesophageal reflux disease with esophagitis without hemorrhage K21.00 Esophagitis presence: with esophagitis Esophagitis bleeding: without hemorrhage Additional Codes SHAYLA-7 Assessment Billing - SHAYLA-7 Assessment Tool: SHAYLA-7 Assessment 75048 ([id number]) Assessment & Plan Assessment & Plan (1) Annual physical exam: Code(s): Z00.00 - Encounter for general adult medical examination without abnormal findings Category: Medical Plan: As per HPI (2) Hypertension: Code(s): I10 - Essential (primary) hypertension Category: Medical Qualifiers: Hypertension type: primary hypertension Qualified Code(s): I10 - Essential (primary) hypertension Plan: Patient's blood pressure acceptable today in office. He continues with lisinopril and atenolol with decent affect. Goal blood pressure to be below 140/90 (3) Asthma-COPD overlap syndrome: Code(s): J44.9 - Chronic obstructive pulmonary disease, unspecified Category: Medical Plan: Would like to reestablish care with pulmonology. Was on maintenance inhalers and reports they were helpful when he was using them. Reports recently having some vomiting episodes and had perhaps aspirated. Will send for chest x-ray to evaluate for any infiltrate. (4) Hypogonadism in male: Code(s): E29.1 - Testicular hypofunction Category: Medical Plan: Dentist has lost his pulmonology. He mentions he was due for MRI of his lungs. He still does have issues with his asthma and COPD. (5) Colon cancer screening: Code(s): Z12.11 - Encounter for screening for malignant neoplasm of colon Category: Medical Plan: Willing to do Cologuard. No family history colon cancer. He has been unable to tolerate bowel prep. (6) Impaired glucose metabolism: Code(s): R73.09 - Other abnormal glucose Category: Medical Plan: Today's A1c is 6.1. He will continue metformin 500 mg daily. He will continue on lifestyle and dietary modifications. (7) Gastroesophageal reflux: Code(s): K21.9 - Gastro-esophageal reflux disease without esophagitis Category: Medical Qualifiers: Esophagitis presence: with esophagitis Esophagitis bleeding: without hemorrhage Qualified Code(s): K21.00 - Gastro-esophageal reflux disease with esophagitis, without bleeding Plan: Patient does have a history of for the severe esophagitis. Has not follow up with [facility] in quite some time. He does use famotidine and pantoprazole daily with good effect on reducing his GERD symptoms. Orders: Orders AMB Hemoglobin A1c Today Z13.1 - Encounter for screening for diabetes mellitus Influenza [id number] Immunization Today Z23 - Encounter for immunization Comprehensive [place]. Panel Fast Today R73.09 - Other abnormal glucose Testosterone, Free/Total Today E29.1 - Testicular hypofunction Hemoglobin A1c Today R73.09 - Other abnormal glucose XR chest 2V Today R06.2 - Wheezing Referrals Urology Referral E29.1 - Testicular hypofunction Pulmonology Referral J44.9 - Chronic obstructive pulmonary disease, unspecified Medications: Changed From Symbicort 160-4.5 mcg/actuation (budesonide-formoterol) 2 puffs inhalation Q12H 10.2 ea 2RF NS J44.9 - Chronic obstructive pulmonary disease, unspecified To Symbicort 160-4.5 mcg/actuation (budesonide-formoterol) 2 puffs inhalation Q12H 10.2 ea 1RF 30 days NS J44.9 - Chronic obstructive pulmonary disease, unspecified Refilled albuterol sulfate 90 mcg/actuation 2 puffs inhalation Q4-6H PRN 1 ea 6RF shortness of breath or wheezing 30 days J44.9 - Chronic obstructive pulmonary disease, unspecified atenolol 25 mg PO DAILY 30 tabs 6RF I10 - Essential (primary) hypertension lisinopril 5 mg PO DAILY 30 tabs 6RF I10 - Essential (primary) hypertension pantoprazole 40 mg PO DAILY 90 tabs 1RF 90 days K21.9 - Gastro-esophageal reflux disease without esophagitis metformin 500 mg PO DAILY 30 tabs 3RF 30 days R73.09 - Other abnormal glucose ondansetron HCl 4 mg PO DAILY PRN 14 tabs 0RF for nausea/vomiting R11.0 - Nausea testosterone apply 3 pumps over max area - alternate shoulders on alternate days 3 pumps topical DAILY 75 grams 1RF 30 days E29.1 - Testicular hypofunction, R79.89 - Other specified abnormal findings of blood chemistry tiotropium bromide 2.5 mcg/actuation (Spiriva Respimat) 2 puffs inhalation DAILY 4 grams 6RF 30 days J44.9 - Chronic obstructive pulmonary disease, unspecified doxepin 50 mg PO BEDTIME 30 caps 6RF G47.00 - Insomnia, unspecified tadalafil (Cialis) [facility] [address]33 [id number] 5 mg PO DAILY 90 tabs 1RF 90 days E29.1 - Testicular hypofunction famotidine 40 mg PO BEDTIME 90 tabs 1RF K21.9 - Gastro-esophageal reflux disease without esophagitis Discontinued oxybutynin chloride ER Discontinued Reason: Doctor's Order 10 mg PO DAILY 30 days 90 tabs 3RF N30.10 - Interstitial cystitis (chronic) without hematuria, N32.81 - Overactive bladder, R39.15 - Urgency of urination
== END 2024-01-14 11:32 | disposition home or self-care (01) ==
LOC: HO.HMCH 10:56
PROVIDERS: PCP Physician Assistant; Visit Provider Physician Assistant
DX: Z00.00 Encounter for general adult medical examination without abnormal findings (principal); I10 Essential (primary) hypertension; J44.9 Chronic obstructive pulmonary disease, unspecified; E29.1 Testicular hypofunction; Z12.11 Encounter for screening for malignant neoplasm of colon; R73.09 Other abnormal glucose; K21.00 Gastro-esophageal reflux disease with esophagitis, without bleeding; Z23 Encounter for immunization; Z13.1 Encounter for screening for diabetes mellitus

== ENCOUNTER → 2024-01-14 10:55 | Outpatient (BNVA) | payer OTHER, SELFPAY | PROVIDERS: PCP Physician Assistant; Visit Provider Physician Assistant | DX: Z00.01 Encounter for general adult medical examination with abnormal findings (principal); Z13.1 Encounter for screening for diabetes mellitus; I10 Essential (primary) hypertension; J44.9 Chronic obstructive pulmonary disease, unspecified; E29.1 Testicular hypofunction; R73.09 Other abnormal glucose; K21.00 Gastro-esophageal reflux disease with esophagitis, without bleeding | CPT/HCPCS: 83036; 90471; 96127; 99396 ==

== ENCOUNTER 2024-04-01 12:14 | Outpatient (REF) | payer OTHER, SELFPAY ==
[2024-04-01 13:40] LABS: Estimated Average Glucose 126 mg/dL; Hemoglobin A1C 141.7081 umol/L; Total Hemoglobin (HGBA1C) 3407.1582 umol/L
[2024-04-01 14:10] LABS: Alanine Aminotransferase 18 U/L (0-40); Alkaline Phosphatase 102 U/L (39-117); Anion Gap 10 (12-20); Aspartate Amino Transferase 30 U/L (5-37); Bilirubin Total 0.3 mg/dL (0.0-1.0); Blood Urea Nitrogen 15 mg/dL (9-16); Calcium 8.7 mg/dL (8.4-10.2); Carbon Dioxide 31 mmol/L (22-29); Chloride 103 mmol/L (96-108); Estimated Glomerular Filt Rate > 60; Glucose Fasting 126 mg/dL (60-99); Sodium 140 mmol/L (135-145); Total Protein 7.1 g/dL (6.5-8.0)
[2024-04-07 18:54] LABS: Testosterone, Total 68 ng/dL (250-1100)
[2024-04-08 15:59] LABS: Testosterone, Free 7.2 pg/mL (35.0-155.0); Testosterone, Total 72 ng/dL (250-1100)
== END 2024-04-01 12:15 | disposition home or self-care (01) ==
LOC: HO.LAB 12:14
PROVIDERS: PCP Physician Assistant; Referring Provider Physician Assistant; Visit Provider Nurse Practitioner Family
DX: R73.09 Other abnormal glucose (principal); E29.1 Testicular hypofunction; R35.1 Nocturia; N40.0 Benign prostatic hyperplasia without lower urinary tract symptoms; N30.10 Interstitial cystitis (chronic) without hematuria
CPT/HCPCS: 36415; 80053; 83036; 84402; 84403

== ENCOUNTER 2024-04-27 11:00 | Outpatient (REF) | payer OTHER, SELFPAY ==
--- NOTE | ~2024-04-27 | US_ITS ---
EXAMINATION: US PELVIS LIMITED (BLADDER) CLINICAL INFORMATION: Nocturia. COMPARISON: None available. TECHNIQUE: Real-time imaging of the bladder. FINDINGS: BLADDER: Someone distended and normal. Bilateral ureteral jets are demonstrated. Prevoid bladder volume is 111 mL. Postvoid bladder volume is 18 mL. No bladder wall thickening seen. No obvious diverticuli seen. US/US bladder IMPRESSION: Small postvoid residual bladder volume with normal bilateral ureteral jets. Electronically signed by: Lloyd Bull MD 04/27/2024 12:02 PM EST
== END 2024-04-27 11:01 | disposition home or self-care (01) ==
LOC: HO.HMGCX 11:00
PROVIDERS: PCP Physician Assistant; Visit Provider Nurse Practitioner Family
DX: R35.1 Nocturia (principal); N30.10 Interstitial cystitis (chronic) without hematuria; E29.1 Testicular hypofunction
CPT/HCPCS: 76857

== ENCOUNTER → 2024-04-27 11:03 | Outpatient (BNV) | payer OTHER, SELFPAY | PROVIDERS: PCP Physician Assistant; Visit Provider Radiology Diagnostic Radiology | DX: R35.1 Nocturia (principal) | CPT/HCPCS: 76857 ==

== ENCOUNTER 2024-04-28 14:47 | Outpatient (AMB) | payer OTHER, SELFPAY ==
--- NOTE | 2024-04-28 15:01 | MHC.OFFVIS ---
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 Required: No Accompanied by: Self / Same As Patient Allergies lorazepam [Ativan] Allergy (Unknown, Verified 04/28/24 15:32) Unknown Benzodiazepines [BENZODIAZEPINES] Adverse Reaction (Unknown, Verified 04/28/24 15:32) ALTERED MENTAL STATUS gabapentin [GABAPENTIN] Adverse Reaction (Unknown, Verified 04/28/24 15:32) AGITATION Suprep Bowel Prep Allergy (Unknown, Uncoded 04/28/24 15:32) severe abd pain Medication List - Last Reconciled 04/28/24 by ALBERT Munroe- albuterol sulfate 1.25 mg (3 mL) inhalation Q4-6H PRN 10 days albuterol sulfate 90 mcg/actuation 2 puffs inhalation Q4-6H PRN 30 days amoxicillin 500 mg PO Q8H 7 days atenolol 25 mg PO DAILY blood pressure test kit-medium As directed clonidine HCl 0.1 mg PO TID doxepin 50 mg PO BEDTIME famotidine 40 mg PO BEDTIME hydroxyzine HCl 25 mg PO TID lisinopril 5 mg PO DAILY metformin 500 mg PO DAILY naloxone 4 mg/actuation intranasal nebulizers As directed ondansetron HCl 4 mg PO DAILY PRN pantoprazole 40 mg PO DAILY 90 days polyethylene glycol 3350 17 grams PO DAILY Symbicort 160-4.5 mcg/actuation (budesonide-formoterol) 2 puffs inhalation Q12H 30 days NS tadalafil (Cialis) 5 mg PO DAILY 90 days testosterone 3 pumps topical DAILY 30 days tiotropium bromide 2.5 mcg/actuation (Spiriva Respimat) 2 puffs inhalation DAILY 30 days HPI Comments Details: Srini is a pleasant 58-year-old male patient of Dr. Jones.? He has a past medical history of fatty liver, hypogonadism, delayed gastric emptying, interstitial cystitis, and small-bowel obstruction due to adhesions. He presents to the office today for follow-up regarding his hypogonadism and interstitial cystitis. In discussion with the patient today he reports having lost follow-up as he moved down to [place] however this did not work out therefore he moved back to [place]. He reports having ran out of refills of his testosterone and is enquiring refill. Recent bladder ultrasound results and labs were reviewed with the patient today. 05/07 the bladder is distended and normal. Bladder jets are demonstrated. Pre void bladder volume is approximately 115 mL postvoid bladder volume is approximately 20 mL. No bladder wall thickening is seen no obvious diverticuli is seen. He discusses his previous history of ureteral stricture and ongoing cystoscopies with hydrodistention in the past for his longstanding history of interstitial cystitis with Dr. Canales. Testosterone and free testosterone are as follows: Testosterone: 06/02 524, 06/04 85, 08/03 569, 04/05 72, 04/05 68 Free Testosterone: 06/04 7.1, 08/03 87.1, 04/05 7.2 He reports having followed up with his PCP at which time he was given prescription for low-dose tadalafil as well as refill on his testosterone however recommendations were made for urology referral. I discussed and stressed the importance of following up as planned. He does continue to report ongoing lower urinary tract symptoms of urinary urgency, urinary frequency, and nocturia. He also has noted episodes of bladder pressure. In office urinalysis results reviewed with the patient today. PVR 0 mL. Patient was to previously undergo cystoscopy hydrodistention with Dr. Lane however was awaiting pulmonology clearance due to his COPD. Discussed importance of obtaining clearance for further assessment evaluation of ongoing cystitis. We discussed lifestyle modifications to assist with hypogonadism as well as ED. He otherwise denies incontinence, hematuria, dysuria, foul smelling urine, changes to urinary stream, flank pain, fever, and or chills. [facility] Medical History Fatty liver Gross hematuria Hypogonadism in male Delayed gastric emptying Urge incontinence Interstitial cystitis Bladder mass Abdominal pain Small bowel obstruction due to adhesions Surgical History History of lumbar discectomy S/P trigger finger release History of cystoscopy History of endoscopy Family History Father Lung cancer Hypertension Mother Lung cancer Diabetes Breast cancer Sister Diabetes Sister No problems noted. Family/Other Mental health disorder Social History Housing: House Alcohol intake: never Patient Tobacco Use Status: Former Tobacco user (1.5 years ago) Tobacco use type: Smokeless Tobacco Cigarettes Per Day: 7 Years Smoked: Quit cigarettes, currently Vaping. e-Cigarette/Vaping Use: Currently Using service: Yes Current occupational status: disabled Cognitive needs: No Hearing needs: No Vision needs: No Review of Systems Const Reports as per HPI Eyes Reports no additional complaints ENT Reports as per HPI Card Reports no additional complaints Resp Reports as per HPI GI Reports no additional complaints Reports as per HPI Musc Reports no additional complaints Neuro Reports no additional complaints Psych Reports no additional complaints Endo Reports no additional complaints Garcia/Lymph Reports no additional complaints Aller/Immun Reports no additional complaints Physical Exam Const General: cooperative, healthy appearing, comfortable, no acute distress, well developed, alert and awake Orientation/consciousness: patient oriented x3 Limitations: no limitations HEENT Head: Yes normal to inspection, Yes normocephalic and Yes atraumatic Ears: hearing grossly normal bilaterally Eyes General: appearance normal, both eyes and all related structures Neck Neck: Yes normal visual inspection and Yes trachea midline Chest Chest palpation & inspection: normal inspection of the chest Resp Effort & Inspection: normal respiratory effort and able to speak in complete sentences Cardio Rate: regular rate GI Inspection: Yes normal to inspection (round ) General: Yes no CVA tenderness Back/Spine/Pelvis Back: no CVA tenderness Skin General skin exam: no rashes or lesions noted Neuro General: patient oriented x3 Extrem General: Yes normal to inspection Psych Appearance: grossly normal and well kempt Mental Status: mental status grossly normal Speech and movement: Normal speech and movement present and Clear speech present Affect: normal affect Attitude: cooperative Thought process: Normal thought process present Thought content: Normal thought content present Insight: Fair insight present (Psych) Judgement: Fair judgement present (Psych) Office Procedures Post Void Residual Post Residual Void Post Void Residual (PVR): 0 83000-Ellh Void Residual by ultrasound Results AMB Urinalysis, Automated UA Leukoctes 0 Rose/uL Last Edit by SANJANA Devries on 04/28/24 15:20 UA Nitrite Negative Last Edit by SANJANA Devries on 04/28/24 15:20 UA Urobilinogen 1 mg/dL Last Edit by Velvet Prakash, RMA on 04/28/24 15:20 UA Protein 15 mg/dL Last Edit by Velvet Prakash, RMA on 04/28/24 15:20 UA pH 6.0 Last Edit by Velvet Prakash, RMA on 04/28/24 15:20 UA Blood 25 Jan/uL Last Edit by Velvet Prakash, RMA on 04/28/24 15:20 UA Specific [place] 1.020 Last Edit by Velvet Prakash, RMA on 04/28/24 15:20 UA Ketone Negative Last Edit by Velvet Prakash, RMA on 04/28/24 15:20 UA Bilirubin 0 mg/dL Last Edit by Velvet Prakash, RMA on 04/28/24 15:20 UA Glucose 0 mg/dL Last Edit by Velvet Prakash, A on 04/28/24 15:20 Results Reviewed Results Reviewed: Laboratory Last Values Urine pH (Auto) 6.0 04/28/24 15:19 Specific [place] (Auto) 1.020 04/28/24 15:19 Urine Protein (Auto) 15 mg/dL 04/28/24 15:19 Glucose (UA)(Auto) 0 mg/dL 04/28/24 15:19 Urine Ketones (Auto) Negative 04/28/24 15:19 Urine Blood (Auto) 25 Jan/uL 04/28/24 15:19 Urine Nitrite (Auto) Negative 04/28/24 15:19 Urine Bilirubin (Auto) 0 mg/dL 04/28/24 15:19 Urine Urobilinogen (Auto) 1 mg/dL 04/28/24 15:19 Leukocyte Esterase (Auto) 0 Rose/uL 04/28/24 15:19 Date of Service: 04/27/24 EXAMINATION: US PELVIS LIMITED (BLADDER) FINDINGS: BLADDER: Someone distended and normal. Bilateral ureteral jets are demonstrated. Prevoid bladder volume is 111 mL. Postvoid bladder volume is 18 mL. No bladder wall thickening seen. No obvious diverticuli seen. IMPRESSION: Small postvoid residual bladder volume with normal bilateral ureteral jets. Assessment & Plan Assessment & Plan (1) Interstitial cystitis: Comment: Prior hydrodistention Code(s): N30.10 - Interstitial cystitis (chronic) without hematuria Category: Medical (2) Hypogonadism in male: Code(s): E29.1 - Testicular hypofunction Category: Medical (3) Erectile dysfunction: Code(s): N52.9 - Male erectile dysfunction, unspecified Category: Medical Plan In office urinalysis results reviewed with the patient today; as noted above; will send for urine cytology. PVR 0 mL. We discussed lifestyle modifications to assist with hypogonadism as well as erectile dysfunction. We discussed bladder triggers/irritants. We discussed at length importance of following up as planned. Recent testosterone results reviewed with the patient today; as noted above. Discussed importance of obtaining labs as ordered. Will obtain testosterone, PSA, and free testosterone for further assessment evaluation. We discussed attempting to obtain pulmonology clearance to schedule cystoscopy with hydrodistention and possible bladder biopsies. Follow-up within the next 2-6 weeks with labs to be completed prior; or sooner with any issues, concerns, and or questions. Orders: Orders AMB Post Void Residual by ultrasound Today N40.0 - Benign prostatic hyperplasia without lower urinary tract symptoms Testosterone, Free/Total Today E29.1 - Testicular hypofunction AMB Urinalysis Automated Today Z13.9 - Encounter for screening, unspecified Urine Cytology Today N30.10 - Interstitial cystitis (chronic) without hematuria Prostate Specific Antigen Today E29.1 - Testicular hypofunction, N52.9 - Male erectile dysfunction, unspecified Medications: Refilled tadalafil (Cialis) [facility] DR33 [id number] 5 mg PO DAILY 90 days 90 tabs 1RF E29.1 - Testicular hypofunction testosterone apply 3 pumps over max area - alternate shoulders on alternate days 3 pumps topical DAILY 30 days 75 grams 0RF E29.1 - Testicular hypofunction, R79.89 - Other specified abnormal findings of blood chemistry Patient Instructions: The patient had an opportunity to ask questions regarding the treatment plan. All questions were answered. Physical exam, labs, and imaging were discussed and reviewed in detail. As well as risks, benefits, and discussion of treatment choices. No major barriers to understanding were identified. The patient expressed understanding and agreement with the above treatment plan. The patient was made aware they should contact our office by phone for worsening of their current condition, the appearance of new symptoms, or with any questions or concerns. Compliance is encouraged with any medications and follow up testing that is ordered. It is a privilege to be allowed the opportunity to participate in? your urological care.? Again, if you have any questions or concerns If you have any questions or concerns please do not hesitate to contact me. The office is [phone]. This note is constructed using voice recognition software. While every effort has been made to ensure accuracy eviction specialist errors may have been included. Yours sincerely, RISHI Munroe Coding Level of Care Code Est Pt Level 4 (48704) Diagnoses Interstitial cystitis N30.10 Hypogonadism in male E29.1 Erectile dysfunction N52.9 CPT Codes Post Residual Void - PVR CPT Code: 88019-Dwxy Void Residual by ultrasound ([id number])
== END 2024-04-28 15:57 | disposition home or self-care (01) ==
PROVIDERS: PCP Physician Assistant; Visit Provider Nurse Practitioner Family
DX: N30.10 Interstitial cystitis (chronic) without hematuria (principal); E29.1 Testicular hypofunction; N52.9 Male erectile dysfunction, unspecified; Z13.9 Encounter for screening, unspecified
CPT/HCPCS: 99214

== ENCOUNTER 2024-04-28 14:47 | Outpatient (REF) | payer OTHER, SELFPAY ==
[2024-04-28 16:23] LABS: Urine Cytology See Pathology rpt
== END 2024-04-28 14:48 | disposition home or self-care (01) ==
LOC: HO.LAB 14:47
PROVIDERS: PCP Physician Assistant; Visit Provider Nurse Practitioner Family
DX: N40.0 Benign prostatic hyperplasia without lower urinary tract symptoms (principal); N30.10 Interstitial cystitis (chronic) without hematuria; E29.1 Testicular hypofunction; N52.9 Male erectile dysfunction, unspecified
CPT/HCPCS: 51798; 81003; 88112; 99212

== ENCOUNTER 2024-05-09 13:43 | Outpatient (REF) | payer OTHER, SELFPAY ==
[2024-05-09 15:56] LABS: Prostate Specific Antigen 0.84 ng/mL (<0.05-4.0)
[2024-05-13 15:38] LABS: Testosterone, Free 18.1 pg/mL (35.0-155.0); Testosterone, Total 215 ng/dL (250-1100)
== END 2024-05-09 13:44 | disposition home or self-care (01) ==
LOC: HO.LAB 13:43
PROVIDERS: PCP Physician Assistant; Visit Provider Nurse Practitioner Family
DX: R35.1 Nocturia (principal); N40.0 Benign prostatic hyperplasia without lower urinary tract symptoms; E29.1 Testicular hypofunction
CPT/HCPCS: 36415; 84153; 84402; 84403

== ENCOUNTER 2024-06-15 10:46 | Outpatient (AMB) | payer OTHER, SELFPAY ==
--- NOTE | 2024-06-15 10:47 | A.OFFVIS_ITS ---
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 Jones.?He has a past medical history of fatty liver, hypogonadism, delayed gastric emptying, interstitial cystitis, and small-bowel obstruction due to adhesions. He is being followed up on today via video telehealth regarding his hypogonadism and interstitial cystitis. In discussion with the patient today he reports he had been doing well and feeling well up until approximately 1 month ago when he ran out of refills for his testosterone. He reports having to had canceled his last scheduled appointment as he has been having other issues. Patient with a longstanding history of hypogonadism as well as ureteral stricture and ongoing c ystoscopies with hydrodistention in the past for his longstanding history of interstitial cystitis with Dr. Canales. Previous workup has included a bladder ultrasound 05/07 the bladder is distended and normal. Bladder jets are demonstrated. Pre void bladder volume is approximately 115 mL postvoid bladder volume is approximately 20 mL. No bladder wall thickening is seen no obvious diverticuli is seen. Labs are as follows: Testosterone: 06/02 524, 06/04 85, 08/03 569, 04/05 72, 04/05 68, 05/07 215 Free Testosterone: 06/04 7.1, 4/23 87.1, 04/05 7.2, 05/07 18.1 PSA: 05/07 0.84 Patient had previously been getting hypogonadism replacement through PCP however recommendations were made for urology referral for follow-up. I discussed and stressed the importance of following up as planned in obtaining labs as ordered. He does continue to report ongoing lower urinary tract symptoms of urinary urgency, urinary frequency, and nocturia. He also has noted episodes of bladder pressure. Patient was to previously undergo cystoscopy hydrodistention with Dr. Lane however was awaiting pulmonology clearance due to his COPD. Discussed importance of obtaining clearance for further assessment evaluation of ongoing cystitis. We discussed lifestyle modifications to assist with hypogonadism as well as ED. He otherwise denies incontinence, hematuria, dysuria, foul smelling urine, changes to urinary stream, flank pain, fever, and or chills. [facility] Medical History Fatty liver Gross hematuria Hypogonadism in male Delayed gastric emptying Urge incontinence Interstitial cystitis Bladder mass Abdominal pain Small bowel obstruction due to adhesions Surgical History History of lumbar discectomy S/P trigger finger release History of cystoscopy History of endoscopy Family History Father Lung cancer Hypertension Mother Lung cancer Diabetes Breast cancer Sister Diabetes Sister No problems noted. Family/Other Mental health disorder Social History Housing: House Alcohol intake: never Patient Tobacco Use Status: Former Tobacco user (1.5 years ago) Tobacco use type: Smokeless Tobacco Cigarettes Per Day: 7 Years Smoked: Quit cigarettes, currently Vaping. e-Cigarette/Vaping Use: Currently Using service: Yes Current occupational status: disabled Cognitive needs: No Hearing needs: No Vision needs: No Review of Systems Const Reports as per HPI Eyes Reports no additional complaints ENT Reports as per HPI Card Reports no additional complaints Resp Reports as per HPI GI Reports no additional complaints Reports as per HPI Musc Reports no additional complaints Neuro Reports no additional complaints Psych Reports no additional complaints Endo Reports no additional complaints Garcia/Lymph Reports no additional complaints Aller/Immun Reports no additional complaints Physical Exam Const General: cooperative, healthy appearing, comfortable, no acute distress, well developed, alert and awake Orientation/consciousness: patient oriented x3 Resp Effort & Inspection: normal respiratory effort and able to speak in complete sentences Neuro General: patient oriented x3 Psych Appearance: grossly normal and well kempt Mental Status: mental status grossly normal Affect: normal affect Attitude: cooperative Thought content: Normal thought content present Insight: Fair insight present (Psych) Judgement: Fair judgement present (Psych) Telehealth Telehealth Telehealth Platform: [place] Location of provider rendering services: practice address Location of patient: address on file Patient Identification confirmed using: Name, : Yes Telehealth method: video Patient verbally consented to treatment: Yes Patient verbally consented to billing insurance company: Yes Patient informed of any privacy concerns related to visit: Yes Minutes spent on Phone/Video with Pt.: 15 Assessment & Plan Assessment & Plan (1) Hypogonadism in male: Code(s): E29.1 - Testicular hypofunction Category: Medical (2) Erectile dysfunction: Code(s): N52.9 - Male erectile dysfunction, unspecified Category: Medical Plan Recent labs were reviewed with the patient today; as noted above. We discussed importance of obtaining labs as ordered as CBC had not been yet completed. We also discussed importance of taking medications and follow-ups as planned. Continue testosterone as discussed and prescribed; refill provided. We discussed obtaining pulmonology clearance to further undergo treatment options cystoscopy hydrodistention. Discussed bladder triggers/irritants. Will obtain CBC, PSA, testosterone free and total in 3 months. Follow-up in 3 months in office with labs and PVR; or sooner with any issues, concerns, and or questions. Orders: Orders Complete Blood Count no Diff 3 Months E29.1 - Testicular hypofunction PSA,Total (Free>4and<10) 3 Months E29.1 - Testicular hypofunction, N52.9 - Male erectile dysfunction, unspecified Testosterone, Free/Total 3 Months E29.1 - Testicular hypofunction, N52.9 - Male erectile dysfunction, unspecified Medications: Refilled tadalafil (Cialis) [facility] [address]33 [id number] 5 mg PO DAILY 90 tabs 1RF 90 days E29.1 - Testicular hypofunction testosterone apply 3 pumps over max area - alternate shoulders on alternate days 3 pumps topical DAILY 75 grams 3RF 30 days E29.1 - Testicular hypofunction, R79.89 - O ther specified abnormal findings of blood chemistry Patient Instructions: The patient had an opportunity to ask questions regarding the treatment plan. All questions were answered. Physical exam, labs, and imaging were discussed and reviewed in detail. As well as risks, benefits, and discussion of treatment choices. No major barriers to understanding were identified. The patient expressed understanding and agreement with the above treatment plan. The patient was made aware they should contact our office by phone for worsening of their current condition, the appearance of new symptoms, or with any questions or concerns. Compliance is encouraged with any medications and follow up testing that is ordered. It is a privilege to be allowed the opportunity to participate in? your urological care.? Again, if you have any questions or concerns If you have any questions or concerns please do not hesitate to contact me. The office is [phone]. This note is constructed using voice recognition software. While every effort has been made to ensure accuracy supervisor cooperage shop errors may have been included. Yours sincerely, RISHI Munroe Coding Level of Care Code Tele Est Pt Level 3 (29742) Diagnoses Hypogonadism in male E29.1 Erectile dysfunction N52.9
== END 2024-06-15 11:24 | disposition home or self-care (01) ==
LOC: HO.HUSH 10:46
PROVIDERS: PCP Physician Assistant; Visit Provider Nurse Practitioner Family
DX: E29.1 Testicular hypofunction (principal); N52.9 Male erectile dysfunction, unspecified
CPT/HCPCS: 99213

== ENCOUNTER 2024-07-15 11:30 | Outpatient (AMB) | payer OTHER, SELFPAY ==
--- NOTE | 2024-07-15 11:35 | MHC.PC.OV ---
Vital Signs 07/15/24 11:39 Height 5 ft 9 in Weight 179 lb 8 oz BMI 26.5 BP 140/60 H Blood Pressure Location Lt brachial Position Sitting Pulse 80 Pulse Source Pulse Oximeter Temp 96.9 F Temp Source Temporal Artery Scan Pulse Oximetry (%) 97 Oxygen Delivery Method Room Air Intake Visit Reasons: [facility] 07/08 Intake Note: Patient is here for hospital discharge follow up. Patient was discharged from [facility] on 07/08/24. Implementation Director Required: No Spool Carrier: Not Required per policy Accompanied by: Self / Same As Patient Allergies lorazepam [Ativan] Allergy (Unknown, Verified 07/15/24 11:37) Unknown Benzodiazepines [BENZODIAZEPINES] Adverse Reaction (Unknown, Verified 07/15/24 11:37) ALTERED MENTAL STATUS gabapentin [GABAPENTIN] Adverse Reaction (Unknown, Verified 07/15/24 11:37) AGITATION Suprep Bowel Prep Allergy (Unknown, Uncoded 07/15/24 11:37) severe abd pain Tobacco use date assessed: 07/15/24 Dental Screening Dental Screen Date: 07/15/24 Did you have a dental visit in the last 12 months?: No Did you have a dental problem in the last 6 months where you did not have access to dental care?: No Was dental information given to patient?: Patient has dentist HPI HPI Comments History of Present Illness Details 58 y/o Male patient who presents today for HDF. PMHx significant for HTN, T2DM, Bipolar and Depression. Pt was originally admitted at [facility] on 07/03 due to being Suicidal with attempts (took the whole bottle of Clodine) Plus Took Fentaly and drank lots of alcohol. He was Transferred to [facility] on 07/04 - 07/08 for close management of his Mental health. Pt brought in Medication list and asking for refills. He has an appointment with Psych 07/25 and Therapist 07/26 @ [facility]. Today he denies SI or SA. [facility] Medical History (Updated 07/15/24 @ 11:43 by Alice Lin NP) Suicidal behavior Major depression Fatty liver Gross hematuria Hypogonadism in male Delayed gastric emptying Urge incontinence Interstitial cystitis Bladder mass Abdominal pain Small bowel obstruction due to adhesions Surgical History History of lumbar discectomy S/P trigger finger release History of cystoscopy History of endoscopy Family History Father Lung cancer Hypertension Mother Lung cancer Diabetes Breast cancer Sister Diabetes Sister No problems noted. Family/Other Mental health disorder Social History Housing: House Alcohol intake: never Patient Tobacco Use Status: Former Tobacco user (1.5 years ago) Tobacco use type: Smokeless Tobacco Cigarettes Per Day: 7 Years Smoked: Quit cigarettes, currently Vaping. e-Cigarette/Vaping Use: Currently Using service: Yes Current occupational status: disabled Cognitive needs: No Hearing needs: No Vision needs: No Questionnaire PHQ-9 Over the last 2 weeks, how often have you been bothered by any of the following problems? 1. Little interest or pleasure in doing things: not at all 2. Feeling down, depressed, or hopeless: nearly every day (Currently on medication) 3. Trouble falling or staying asleep, or sleeping too much: not at all 4. Feeling tired or having little energy: not at all 5. Poor appetite or overeating: not at all 6. Feeling bad about yourself - or that you are a failure or have let yourself or your family down: not at all 7. Trouble concentrating on things, such as reading the newspaper or watching television: not at all 8. Moving or speaking so slowly that other people could have noticed. Or the opposite - being so fidgety or restless that you have been moving around a lot more than usual: not at all 9. Thoughts that you would be better off or of hurting yourself in some way: not at all Total score: 3 Depression Screening Interpretation: Negative Depression Screening Done: Yes Source: Developed by Drs. Seferino Kilpatrick, Zainab Royal, Emerson Samaniego and colleagues, with an educational yovana from [employer]. Thrive Questionnaire Date Thrive assessed: 07/15/24 I am a: Patient What is your living situation today?: I have a steady place to live Within the past 12 months, did the food you bought not last and you didn't have the money to get more?: Never true Within the past 12 months, did you worry whether your food would run out before you got money to buy more?: Never true Do you have trouble paying for medicines?: No Do you have trouble getting transportation to medical appointments?: No Do you have trouble paying your heating and electricity bill?: No Do you have trouble taking care of your child, family member or friend?: No Do you have trouble with day-to-day activities such as bathing, preparing meals, shopping, managing finances, etc.?: No Are you currently unemployed and looking for a job?: No Are you interested in more education?: No Please select the resources that you would like help with: None Currently or been in a relationship where the following occur: No concerns reported THRIVE Score: 0 AUDIT C Alcohol Use Questionnaire (AUDIT-C) 1. How often do you have a drink containing alcohol?: Never Total Score: 0 SHAYLA-7 AMB Questionnaire SHAYLA-7 Date SHAYLA - 7 assessed: 07/15/24 Feeling nervous, anxious, or on edge: 3 = Nearly every day (Currently on medication) Not being able to stop or control worryin = Not at all Worrying too much about different things: 0 = Not at all Trouble relaxin = Not at all Being so restless that it is hard to sit still: 0 = Not at all Becoming easily annoyed or irritable: 0 = Not at all Feeling afraid as if something awful might happen: 0 = Not at all Total SHAYLA-7 score (0-4 normal; 5-9 mild; 10-14 moderate; 15-21 severe): 3 Source: Developed by Drs. Seferino Kilpatrick, Zainab Royal, Emerson Samaniego and colleagues, with an educational yovana from [employer]. Review of Systems Const All systems reviewed & are unremarkable except as noted in HPI and below Physical exam (Primary Care) Vital Signs: Last Vital Signs Temp 96.9 F 07/15/24 11:39 Pulse 80 07/15/24 11:39 BP 140/60 H 07/15/24 11:39 Pulse Ox 97 07/15/24 11:39 Oxygen Delivery Method Room Air 07/15/24 11:39 BMI result Body Mass Index 26.5 Tobacco/Smoking Status: Tobacco use Status Tobacco use date assessed 07/15/24 07/15/24 11:44 Patient Tobacco Use Status Former Tobacco user (1.5 07/15/24 11:37 years ago) Tobacco use type Smokeless Tobacco 07/15/24 11:37 e-Cigarette/Vaping Use Currently Using 07/15/24 11:37 PHQ-9: PHQ-9 Score PHQ-9: Total score 3 07/15/24 11:50 Depression Screening Interpretation: Negative Thrive Assessment: Date of Thrive Assessment Date Thrive assessed 07/15/24 07/15/24 11:37 Currently or been in a relationship where the following occur: No concerns reported Const General: no acute distress Nutritional Appearance: malnourished Orientation/consciousness: patient oriented x3 Neuro General: patient oriented x3, gait normal and moves all extremities Psych Speech and movement: Normal speech and movement present Affect: normal affect Attitude: cooperative Thought process: Normal thought process present Thought content: suicidality and no homicidality Coding Level of Care Code Est Pt Level 4 (39644) Diagnoses Moderate episode of recurrent major depressive disorder F33.1 Active/Remission status: currently active Major depression episode severity: moderate Major depression recurrence: recurrent Suicidal behavior with attempted self-injury T14.91XA Attempted self-injury: with attempted self-injury Time Spent (min) 20 Assessment & Plan Assessment & Plan (1) Major depression: Code(s): F32.9 - Major depressive disorder, single episode, unspecified Category: Medical Qualifiers: Active/Remission status: currently active Major depression episode severity: moderate Major depression recurrence: recurrent Qualified Code(s): F33.1 - Major depressive disorder, recurrent, moderate Plan: Refilled Psych medications. Has an upcoming Appointment with Psych and therapist 07/25 & 07/26 (2) Suicidal behavior: Code(s): R45.89 - Other symptoms and signs involving emotional state Category: Medical Qualifiers: Attempted self-injury: with attempted self-injury Qualified Code(s): T14.91XA - Suicide attempt, initial encounter Plan: Refilled Psych medications. Has an upcoming Appointment with Psych and therapist 07/25 & 07/26 Denies SA or SI Medications: New olanzapine 5 mg PO BID 60 tabs 0RF F33.1 - Major depressive disorder, recurrent, moderate, T14.91XA - Suicide attempt, initial encounter hydroxyzine HCl 50 mg (2 x 25 mg) PO BID 90 tabs 0RF F33.1 - Major depressive disorder, recurrent, moderate, T14.91XA - Suicide attempt, initial encounter trazodone 100 mg PO BEDTIME 30 tabs 0RF F33.1 - Major depressive disorder, recurrent, moderate, T14.91XA - Suicide attempt, initial encounter Refilled ondansetron HCl 4 mg PO DAILY PRN 14 tabs 0RF for nausea/vomiting R11.0 - Nausea albuterol sulfate 1.25 mg (3 mL) inhalation Q4-6H 10 days PRN 75 mL 1RF shortness of breath or wheezing pantoprazole 40 mg PO DAILY 90 days 90 tabs 1RF K21.9 - Gastro-esophageal reflux disease without esophagitis
[2024-07-15 11:39] VITALS: BP 140/60; PULSE 80; TEMP 36.1; O2SAT 97; BMI 26.5
--- OUTSIDE RECORDS SUMMARY | 2024-07-15 13:31 | XMS_ITS | Clinical Summary ---
Author Organization [facility] Address [address] [place] [address] Phone Care Team Providers Care Esthetician/Spa Coordinator Name Role Phone Robb Jones Primary Care Provider [phone] Allergies No known active allergies Medications Ventolin HFA 90 mcg/actuation inhaler Inhale 2 puffs by mouth every 6 (six) hours if needed for shortness of breath. 5 Active atenoloL (TENORMIN) 25 mg tablet Take 1 tablet (25 mg total) by mouth 1 (one) time each day. 4 Active cloNIDine (CATAPRES) 0.1 mg tablet Take 1 tablet (0.1 mg total) by mouth 3 (three) times a day if needed. 5 Active doxepin (SINEquan) 50 mg capsule Take 1 capsule (50 mg total) by mouth at bedtime. at bedtime 5 Active famotidine (PEPCID) 40 mg tablet Take 1 tablet (40 mg total) by mouth at bedtime. 4 Active hydrOXYzine HCL (ATARAX) 25 mg tablet Take 1 tablet (25 mg total) by mouth 3 (three) times a day if needed. 5 Active lisinopriL (PRINIVIL,ZESTR IL) 5 mg tablet Take 1 tablet (5 mg total) by mouth 1 (one) time each day. 4 Active metFORMIN (GLUCOPHAGE) 500 mg tablet Take 1 tablet (500 mg total) by mouth 1 (one) time each day. 4 Active pantoprazole (PROTONIX) 40 mg EC tablet Take 1 tablet (40 mg total) by mouth 1 (one) time each day before breakfast. Active Active Problems No known active problems Encounters Date Type Department Care Team Description 07/03/2024 10:19 AM EDT - 07/04/2024 11:10 AM EDT Emergency [facility] Emergency [address] [place] [address] Kevin Ashton MD Montano, Gary L, MD Millay, Scot A, MD Patel, Parth B, MD Suicidal ideation (Primary Dx) [facility]charge [facility]position[facility] from Last 3 Months Social History Tobacco Use Types Packs/Day Years Used Date Smoking Tobacco: Never Assessed Sex and Gender Information Value Date Recorded Sex Assigned at Male 07/03/2024 11:25 AM EDT Legal Sex Male 9:49 PM EST Gender Identity Male 07/03/2024 11:25 AM EDT Sexual Orientation Straight 07/03/2024 11 :25 AM EDT Obstetrics History Last Filed Vital Signs Vital Sign Reading Time Taken Comments Blood Pressure 125/78 07/04/2024 8:40 AM EDT Pulse 49 07/04/2024 8:40 AM EDT Temperature 36.7 ??C (98.1 ??F) 07/04/2024 8:40 AM ED T Respiratory Rate 16 07/04/2024 8:40 AM EDT Oxygen Saturation 100% 07/04/2024 8:40 AM EDT Inhaled Oxygen Concentration - - Weight 81.6 kg (180 lb) 07/03/2024 11:52 AM EDT Height 172.7 cm (5' 8 ) 07/03/2024 11:52 AM EDT Body Mass Index 27.37 07/03/2024 11:52 AM EDT Plan of Treatment Health Maintenance Due Date Last Done Comments DTaP,Tdap,and Td Vaccines (1 - Tdap) 1984 Hepatitis B Vaccines (1 of 3 - 19+ 3-dose series) 1984 Zoster Vaccines (1 of 2) 12/18/2015 Pneumococcal Vaccine: 50+ Ye ars (2 of 2 - PCV) 04/21/2016 04/21/2015 COVID-19 Vaccine (2023-2 5 season) 2023 Influenza Vaccine (#1) 2023 Cholesterol Screening (Lipid Panel) 07/03/2024 Colorectal Cancer Screening: Colonoscopy 07/03/2024 Depression Screening 07/03/2024 HIV Screening 07/03/2024 Hepatitis C Screening 07/03/2024 Social Influencers of Health Screening 07/03/2024 Pneumococcal Vaccine: Pediat rics (0 to 5 Years) and At-Risk Patients (6 to 64 Years) Aged Out 04/21/2015 No longer eligi ble based on patient's age to complete this topic HIB Vaccines Aged Out No longer eligi ble based on patient's age to complete this topic HPV Vaccines Aged Out No longer eligi ble based on patient's age to complete this topic Hepatitis A Vaccines Aged Out No long er eligible based on patient's age to complete this topic IPV Vaccines Aged Out No longer eligi ble based on patient's age to complete this topic MMR Vaccines Aged Out No longer eligi ble based on patient's age to complete this topic Meningococcal ACWY Vaccine Aged Out N o longer eligible based on patient's age to complete this topic Meningococcal B Vacine Aged Out No lo nger eligible based on patient's age to complete this topic RSV Immunization Patients Un layla 20 months Aged Out No longer eligible b ased on patient's age to complete this topic Varicella Vaccines Aged Out No longer eligible based on patient's age to complete this topic Procedures Procedure Name Priority Date/Time Associated Diagnosis Comments ECG OUTSIDE 07/05/2024 ECG OUTSIDE 07/05/2024 ECG ANNOTATED 07/05/2024 POCT GLUCOSE BLOOD Routine 07/04/2024 8: 22 AM EDT ECG 12-LEAD Timed 07/03/2024 3:06 PM EDT ECG 12-LEAD Timed 07/03/2024 1:00 PM EDT CBC WITH AUTO DIFFERENTIAL STAT 07/03/2024 11:01 AM EDT METHADONE SCREEN, URINE STAT 07/03/2024 11:01 AM EDT PHENCYCLIDINE, URINE STAT 07/03/2024 11:01 AM EDT BUPRENORPHINE SCREEN, URINE STAT 07/03/2024 11:01 AM EDT DRUG ABUSE SCREEN 8A PANEL, URINE STAT 07/03/2024 11:01 AM EDT SALICYLATE LEVEL STAT 07/03/2024 11:0 1 AM EDT ACETAMINOPHEN LEVEL STAT 07/03/2024 1 1:01 AM EDT ETHANOL STAT 07/03/2024 11:01 AM EDT COMPREHENSIVE METABOLIC PANEL STAT 07/03/2024 11:01 AM EDT CBC AND DIFFERENTIAL STAT 07/03/2024 11:01 AM EDT ECG 12-LEAD STAT 07/03/2024 10:52 AM EDT from Last 3 Months Results * ECG-Outside (07/05/2024) Only the most recent of2 resultswithin the time period is included. us Provider Onbase MD ECG ORDERABLES Final Result * ECG-Annotated (07/05/2024) us Provider Onbase MD ECG ORDERABLES Final Result * (ABNORMAL) POCT Glucose, blood (07/04/2024 8:22 AM EDT) [facility] Signature Glucose POCT 102(H) 70 - 100 mg/dL 07/04/2024 8:22 AM EDT [facility] Blood Capillary blood specimen / Unknown 07/04/2024 8:22 AM EDT 07/04/2024 8:23 AM EDT us Akin Roberson MD LAB POINT OF CARE TE ST DOCKED DEVICE UNSOLICITED RESULTS Final Result [facility] [address] [place] [address], [place] [phone] * ECG 12 lead (07/03/2024 3:06 PM EDT) Only the most recent of3 resultswithin the time period is included. Ventricular Rate ECG 48 BPM GEMUSE Atrial Rate 48 BPM GEMUSE P-R Interval 170 ms GEMUSE QRS Duration 82 ms GEMUSE Q-T Interval 482 ms GEMUSE QTc 430 ms GEMUSE P Wave Gowen 31 degrees GEMUSE R Gowen 31 degrees GEMUSE T Gowen 38 degrees GEMUSE ECG Interpretation Sinus bradycardia Otherwise normal ECG When compared with ECG of 03-JUL-2024 13:00, (unconfirmed) No significant change was found Confirmed by ELIAZAR STRONG ([id number]) on 07/03/2024 5:05:59 PM GEMUSE 07/03/2024 3:06 PM EDT 07/03/2024 5:05 PM EDT Pamela SESAY ECG ORDERABLES Final Result GEMUSE * (ABNORMAL) Drug abuse screen 8a panel, urine (07/03/2024 11:01 AM EDT) Pathologist [facility] Amphetamine Screen, Ur Negative Negative LAB CHEMISTRY METHOD 12:28 PM EDT [facility] Comment:Certain OTC medicati ons containing ephedrine, phenylephrine, pseudoephedrine and phenylpropanolamine can cause false positive results. Barbiturate Screen, Ur Negative Negative LAB CHEMISTRY METHOD 12:28 PM EDT [facility] Benzodiazepine Screen, Ur Positive(A ) Negative LAB CHEMISTRY METHOD 12:28 PM EDT [facility] Cocaine Screen, Ur Negative Negative LAB CHEMISTRY METHOD 12:28 PM EDT [facility] Opiate Screen, Ur Positive(A ) Negative LAB CHEMISTRY METHOD 12:28 PM EDT [facility] Cannabinoid (THC) Screen, Ur Negative Negative LAB CHEMISTRY METHOD 12:28 PM EDT [facility] Comment:Specimens from patie nts taking pantoprazole sodium (Protonix) have been shown to produce false positive results. Oxycodone Screen, Ur Negative Negative LAB CHEMISTRY METHOD 5 12:28 PM EDT [facility] Fentanyl, Ur Positive(A ) Negative LAB CHEMISTRY METHOD 5 12:28 PM EDT [facility] Urine Urine specimen obtained by clean catch procedure / Unknown Non-blood Collection / Unknown 07/03/2024 11:01 AM EDT 07/03/2024 11:47 AM EDT Narrative [facility] - 07/03/2024 12:28 PM EDT Assay cutoffs: Amphetamines ? 1000 ng/mL Barbiturates ?200 ng/mL Benzodiazepines ?? 200 ng/mL Cocaine ? 300 ng/mL Fentanyl ?1 ng/mL Opiates ? 300 ng/mL Oxycodone ? 100 ng/mL THC ?50 ng/mL Semi-quantitative assay for screening purposes only. Unconfirmed screening result should not be used for non-medical purposes. *ALTERNATE METHOD CONFIRMATION DONE UPON REQUEST ONLY* us Kevin Ashton MD LAB URINE ORDERABLES Tea ramírez Result [facility] [address] [place] [address], * Buprenorphine screen, urine (07/03/2024 11:01 AM EDT) Buprenorphine Screen Urine Negative Negative LAB CHEMISTRY METHOD 07/03/2024 12:18 PM EDT [facility] Urine Urine specimen obtained by clean catch procedure / Unknown Non-blood Collection / Unknown 07/03/2024 11:01 AM EDT 07/03/2024 11:47 AM EDT Narrative [facility] - 07/03/2024 12:18 PM EDT Assay cutoff 5 ng/mL Semi-quantitative assay for screening purposes only. Unconfirmed screening result should not be used for non-medical purposes. *ALTERNATE METHOD CONFIRMATION DONE UPON REQUEST ONLY* Kevin Ashton MD LAB URINE ORDERABLES Tea l Result Performing Organization Address [facility] de Phone Number [facility] [address] [place] [address], [place] [phone] * (ABNORMAL) Methadone, urine (07/03/2024 11:01 AM EDT) [facility] Methadone Screen, Urine Positive (A) Negative LAB CHEMISTRY METHOD 07/03/2024 12:18 PM EDT [facility] Comment: Assay cutoff 300 ng/mL Semi-quantitative assay for screening purposes only. Unconfirmed screening result should not be used for non-medical purposes. *ALTERNATE METHOD CONFIRMATION DONE UPON REQUEST ONLY* Urine Urine specimen obtained by clean catch procedure / Unknown Non-blood Collection / Unknown 07/03/2024 11:01 AM EDT 07/03/2024 11:47 AM EDT Kevin Ashton MD LAB URINE ORDERABLES Tea l Result Performing Organization Address City/[facility]/ZIP Co de Phone Number [facility] [address] [place] [address], [place] [phone] * (ABNORMAL) CBC auto differential (07/03/2024 11:01 AM EDT) [facility] WBC 7.0 4.8 - 10.8 K/[facility] LAB HEMETOLOGY METHOD 07/03/2024 11:56 AM EDT [facility] RBC 5.30 4.50 - 5.50 M/mcL LAB HEMETOLOGY METHOD 07/03/2024 11:56 AM [facility] Hemoglobin 13.7 13.5 - 17.5 g/dL LAB HEMETOLOGY METHOD 07/03/2024 11:56 AM [facility] Hematocrit 44.0 42.0 - 54.0 % LAB HEMETOLOGY METHOD 07/03/2024 11:56 AM [facility] MCV 83.7 79.0 - 98.0 FL LAB HEMETOLOGY METHOD 07/03/2024 11:56 AM [facility] MCH 26.0(L) 27.0 - 32.0 pcg LAB HEMETOLOGY METHOD 07/03/2024 11:56 AM [facility] MCHC 31.1(L) 32.0 - 37.0 g/dL LAB HEMETOLOGY METHOD 07/03/2024 11:56 AM [facility] RDW 14.2 11.0 - 15.0 % LAB HEMETOLOGY METHOD 07/03/2024 11:56 AM [facility] Platelets 285 130 - 400 K/mcL LAB HEMETOLOGY METHOD 07/03/2024 11:56 AM [facility] MPV 10.7 7.0 - 11.0 FL LAB HEMETOLOGY METHOD 07/03/2024 11:56 AM [facility] NRBC 0.0 <1.0 % LAB HEMETOLOGY METHOD 07/03/2024 11:56 AM [facility] NRBC Absolute 0.00 <0.10 K/mcL LAB HEMETOLOGY METHOD 07/03/2024 11:56 AM [facility] Neutrophils Relative 57.5 % LAB HEMETOLOGY METHOD 07/03/2024 11:56 AM [facility] Lymphocytes Relative 22.3 % LAB HEMETOLOGY METHOD 07/03/2024 11:56 AM [facility] Monocytes Relative 12.0 % LAB HEMETOLOGY METHOD 07/03/2024 11:56 AM [facility] Eosinophils Relative 7.0 % LAB HEMETOLOGY METHOD 07/03/2024 11:56 AM [facility] Basophils Relative 1.1 % LAB HEMETOLOGY METHOD 07/03/2024 11:56 AM [facility] Immature Granulocytes Relative 0.1 % LAB HEMETOLOGY METHOD 07/03/2024 11:56 AM [facility] Neutrophils Absolute 4.02 1.50 - 7.00 K/mcL LAB HEMETOLOGY METHOD 07/03/2024 11:56 AM [facility] Lymphocytes Absolute 1.56 1.00 - 5.00 K/mcL LAB HEMETOLOGY METHOD 07/03/2024 11:56 AM [facility] Monocytes Absolute 0.84 0.20 - 1.00 K/mcL LAB HEMETOLOGY METHOD 07/03/2024 11:56 AM [facility] Eosinophils Absolute 0.49 0.00 - 0.50 K/mcL LAB HEMETOLOGY METHOD 07/03/2024 11:56 AM [facility] Basophils Absolute 0.08 0.00 - 0.20 K/mcL LAB HEMETOLOGY METHOD 07/03/2024 11:56 AM [facility] Immature Granulocytes Absolute 0.01 0.00 - 0.03 K/mcL LAB HEMETOLOGY METHOD 07/03/2024 11:56 AM [facility] Blood Venous blood specimen / Unknown Venipuncture / Unknown 07/03/2024 11:01 AM EDT 07/03/2024 11:47 AM EDT us Kevin Ashton MD LAB BLOOD ORDERABLES Tea l Result Performing Organization Address [facility] Co de Phone Number [facility] [address] [place] [address], [place] [phone] * Phencyclidine, urine (07/03/2024 11:01 AM EDT) PCP Scrn, Ur Negative Negative LAB CHEMISTRY METHOD 07/03/2024 12:18 PM EDT [facility] Comment: Assay cutoff 25 ng/mL Semi-quantitative assay for screening purposes only. Unconfirmed screening result should not be used for non-medical purposes. *ALTERNATE METHOD CONFIRMATION DONE UPON REQUEST ONLY* Urine Urine specimen obtained by clean catch procedure / Unknown Non-blood Collection / Unknown 07/03/2024 11:01 AM EDT 07/03/2024 11:47 AM EDT us Kevin Ashton MD LAB URINE ORDERABLES Tea l Result Performing Organization Address [facility] Co de Phone Number [facility] [address] [place] [address], [place] [phone] * Ethanol (07/03/2024 11:01 AM EDT) Ethanol Level <3 0 - 10 mg/dL LAB CHEMISTRY METHOD 07/03/2024 12:17 PM EDT [facility] Blood Venous blood specimen / Unknown Venipuncture / Unknown 07/03/2024 11:01 AM EDT 07/03/2024 11:47 AM EDT us Kevin Ashton MD LAB BLOOD ORDERABLES Tea l Result Performing Organization Address [facility]/ZIP Co de Phone Number [facility] [address] [place] [address], [place] [phone] * (ABNORMAL) Acetaminophen level (07/03/2024 11:01 AM EDT) Acetaminophen Level <2.0(L) 10.0 - 30.0 mcg/mL LAB CHEMISTRY METHOD 07/03/2024 12:31 PM EDT [facility] Blood Venous blood specimen / Unknown Venipuncture / Unknown 07/03/2024 11:01 AM EDT 07/03/2024 11:47 AM EDT Kevin Ashton MD LAB BLOOD ORDERABLES Tea l Result Performing Organization Address [facility]/ZIP Co de Phone Number [facility] [address] [place] [address], [place] [phone] * (ABNORMAL) Salicylate level (07/03/2024 11:01 AM EDT) Salicylate Level <1.7(L) 2.0 - 29.0 mg/dL LAB CHEMISTRY METHOD 07/03/2024 12:17 PM EDT [facility] Blood Venous blood specimen / Unknown Venipuncture / Unknown 07/03/2024 11:01 AM EDT 07/03/2024 11:47 AM EDT Kevin Ashton MD LAB BLOOD ORDERABLES Tea l Result Performing Organization Address [facility] de Phone Number [facility] [address] [place] [address], [place] [phone] * (ABNORMAL) Comprehensive metabolic panel (07/03/2024 11:01 AM EDT) Sodium 139 133 - 145 mmol/L LAB CHEMISTRY METHOD 07/03/2024 12:17 PM EDT [facility] Potassium 3.9 3.5 - 5.5 mmol/L LAB CHEMISTRY METHOD 07/03/2024 12:17 PM EDT [facility] Chloride 104 96 - 110 mmol/L LAB CHEMISTRY METHOD 07/03/2024 12:17 PM EDT [facility] CO2 28 21 - 32 mmol/L LAB CHEMISTRY METHOD 07/03/2024 12:17 PM [facility] Anion Gap 7 3 - 11 LAB CHEMISTRY METHOD 07/03/2024 12:17 PM [facility] Glucose 127(H) 70 - 100 mg/dL LAB CHEMISTRY METHOD 07/03/2024 12:17 PM [facility] BUN 14 5 - 25 mg/dL LAB CHEMISTRY METHOD 07/03/2024 12:17 PM [facility] Creatinine 0.95 0.70 - 1.30 mg/dL LAB CHEMISTRY METHOD 07/03/2024 12:17 PM [facility] eGFR 93 >=60 mL/min/1. 73m2 LAB CHEMISTRY METHOD 07/03/2024 12:17 PM [facility] Comment:Calculation based on the??Chronic Kidney Disease Epidemiology Collaboration (CKD-EPI) equation refit??without adjustment for race. BUN/Creatinine Ratio 14.7 LAB CHEMISTRY METHOD 07/03/2024 12:17 PM [facility] Calcium 9.0 8.5 - 10.5 mg/dL LAB CHEMISTRY METHOD 07/03/2024 12:17 PM [facility] AST (SGOT) 23 10 - 42 unit/L LAB CHEMISTRY METHOD 07/03/2024 12:17 PM [facility] ALT (SGPT) 16 10 - 60 unit/L LAB CHEMISTRY METHOD 07/03/2024 12:17 PM [facility] Alkaline Phosphatase 99 42 - 121 unit/L LAB CHEMISTRY METHOD 07/03/2024 12:17 PM [facility] Total Protein 7.0 6.0 - 8.0 g/dL LAB CHEMISTRY METHOD 07/03/2024 12:17 PM [facility] Albumin 3.5 3.2 - 5.0 g/dL LAB CHEMISTRY METHOD 07/03/2024 12:17 PM [facility] Total Bilirubin 0.4 0.0 - 1.4 mg/dL LAB CHEMISTRY METHOD 07/03/2024 12:17 PM EDT [facility] Blood Venous blood specimen / Unknown Venipuncture / Unknown 07/03/2024 11:01 AM EDT 07/03/2024 11:47 AM EDT us Kevin Ashton MD LAB BLOOD ORDERABLES Tea l Result [facility] ([facility]) [facility] [address] [place] [address], [place] [phone] from Last 3 Months Insurance MEDICAID - [place] Care Teams Esthetician/Spa Coordinator Relationship Specialty Start Date End Date Robb Jones PA PCP - General Physician Technical Clerk 07/03/24
== END 2024-07-15 12:01 | disposition home or self-care (01) ==
LOC: HO.HMCH 11:31
PROVIDERS: PCP Physician Assistant; Visit Provider Nurse Practitioner Family
DX: F33.1 Major depressive disorder, recurrent, moderate (principal); T14.91XA Suicide attempt, initial encounter

== ENCOUNTER → 2024-07-15 11:30 | Outpatient (BNVA) | payer OTHER, SELFPAY | PROVIDERS: PCP Physician Assistant; Visit Provider Nurse Practitioner Family | DX: F33.1 Major depressive disorder, recurrent, moderate (principal); I10 Essential (primary) hypertension; E11.9 Type 2 diabetes mellitus without complications; R11.0 Nausea; T14.91XA Suicide attempt, initial encounter; X58.XXXA Exposure to other specified factors, initial encounter; Y93.9 Activity, unspecified; Y92.9 Unspecified place or not applicable; Y99.9 Unspecified external cause status | CPT/HCPCS: 99212 ==

== ENCOUNTER 2024-09-08 13:22 | Outpatient (AMB) | payer OTHER, SELFPAY ==
--- NOTE | 2024-09-08 14:03 | A.OFFVIS_ITS ---
Intake Visit Reasons: 3m/PSA/PVR Intake Note: Patient presents today for follow up on: testosterone labs Testosterone: 144; Free Testosterone: 1.9 PSA: 0.4 Urology Medication: Tadalafil, Testosterone Antibiotic Allergies:None Blood Thinners: None Rn Infusion Required: No Accompanied by: Self / Same As Patient Allergies lorazepam [Ativan] Allergy (Unknown, Verified 09/08/24 22:14) Unknown Benzodiazepines [BENZODIAZEPINES] Adverse Reaction (Unknown, Verified 09/08/24 22:14) ALTERED MENTAL STATUS gabapentin [GABAPENTIN] Adverse Reaction (Unknown, Verified 09/08/24 22:14) AGITATION Suprep Bowel Prep Allergy (Unknown, Uncoded 09/08/24 22:14) severe abd pain Medication List - Last Reconciled 09/08/24 by ALBERT Munroe- albuterol sulfate 90 mcg/actuation 2 puffs inhalation Q4-6H PRN 30 days albuterol sulfate 1.25 mg (3 mL) inhalation Q4-6H PRN 10 days atenolol 25 mg PO DAILY blood pressure test kit-medium As directed diphenhydramine HCl (Banophen) 50 mg PO BEDTIME doxepin 50 mg PO BEDTIME famotidine 40 mg PO BEDTIME hydroxyzine HCl 50 mg (2 x 25 mg) PO BID lisinopril 10 mg PO DAILY metformin 500 mg PO BID naloxone 4 mg/actuation intranasal nebulizers As directed olanzapine 5 mg PO BID ondansetron HCl 4 mg PO DAILY PRN pantoprazole 40 mg PO DAILY 90 days polyethylene glycol 3350 17 grams PO DAILY Symbicort 160-4.5 mcg/actuation (budesonide-formoterol) 2 puffs inhalation Q12H 30 days NS tadalafil (Cialis) 5 mg PO DAILY 90 days testosterone 3 pumps topical DAILY 30 days tiotropium bromide 2.5 mcg/actuation (Spiriva Respimat) 2 puffs inhalation DAILY 30 days trazodone 100 mg PO BEDTIME HPI Comments Details: Srini is a pleasant 58-year-old male patient of Dr. Jnoes.?He has a past medical history of fatty liver, hypogonadism, delayed gastric emptying, in terstitial cystitis, and small-bowel obstruction due to adhesions. He presents to the office today for follow-up of his hypogonadism and interstitial cystitis. In discussion with the patient today he reports having ran out of his testosterone and has not been taking it for the last 2-3 months. He is requesting refill. In office urinalysis results reviewed with the patient today. Microscopic hematuria noted. Patient does have a longstanding history of interstitial cystitis and has undergone a cystoscopy hydrodistention in the past with Dr. Guerra however is unsure as to how long ago this was. When asked he does report a longstanding history of nicotine dependence for over 40 years. He reports having quit 3 years ago however is now vaping for the last 3 years. He denies any known workplace chemical exposure. We did discussed potential causes of microscopic hematuria. We discussed further workup in risks and benefits of these interventions. He discusses having had a history of urethral stricture and has undergone several dilations and has anxiety about having in office cystoscopy however he with undergo cystoscopy with sedation. He does feel his symptoms of interstitial cystitis with urinary urgency, urinary frequency, and nocturia are being well managed independently. Previous workup has included a bladder ultrasound 05/07 the bladder is distended and normal. Blad layla jets are demonstrated. Pre void bladder volume is approximately 115 mL postvoid bladder volume is approximately 20 mL. No bladder wall thickening is seen no obvious diverticuli is seen. Labs are as follows: Testosterone: 06/02 524, 06/04 85, 08/03 569, 04/05 72, 04/05 68, 05/07 215, 09/04 144 Free Testosterone: 06/04 7.1, 08/03 87.1, 04/05 7.2, 05/07 18.1, 09/04 1.9 Hemoglobin/hematocrit: 10/02 16.5/50.7, 08/03 15.1/47.5, 09/04 13.1/40.0 PSA: 05/07 0.84, 09/04 0.4 Patient had previously been getting hypogonadism replacement through PCP however recommendations were made for urology referral for follow-up. I discussed and stressed the importance of following up as planned in obtaining labs as ordered. We discussed lifestyle modifications to assist with hypogonadism as well as ED. He otherwise denies incontinence, hematuria, dysuria, foul smelling urine, changes to urinary stream, flank pain, fever, and or chills. [facility] Medical History Suicidal behavior Major depression Fatty liver Gross hematuria Hypogonadism in male Delayed gastric emptying Urge incontinence Interstitial cystitis Bladder mass Abdominal pain Small bowel obstruction due to adhesions Surgical History History of lumbar discectomy S/P trigger finger release History of cystoscopy History of endoscopy Family History Father Lung cancer Hypertension Mother Lung cancer Diabetes Breast cancer Sister Diabetes Sister No problems noted. Family/Other Mental health disorder Social History Housing: House Alcohol intake: never Patient Tobacco Use Status: Former Tobacco user (1.5 years ago) Tobacco use type: Smokeless Tobacco Cigarettes Per Day: 7 Years Smoked: Quit cigarettes, currently Vaping. e-Cigarette/Vaping Use: Currently Using service: Yes Current occupational status: disabled Cognitive needs: No Hearing needs: No Vision needs: No Review of Systems Const Reports as per HPI Eyes Reports no additional complaints ENT Reports as per HPI Card Reports no additional complaints Resp Reports as per HPI GI Reports no additional complaints Reports as per HPI Musc Reports no additional complaints Neuro Reports no additional complaints Psych Reports no additional complaints Endo Reports no additional complaints Garcia/Lymph Reports no additional complaints Aller/Immun Reports no additional complaints Physical Exam Const General: cooperative, healthy appearing, comfortable, no acute distress, well developed, alert and awake Orientation/consciousness: patient oriented x3 Limitations: no limitations HEENT Head: Yes normal to inspection, Yes normocephalic and Yes atraumatic Ears: hearing grossly normal bilaterally Eyes General: appearance normal, both eyes and all related structures Neck Neck: Yes normal visual inspection and Yes trachea midline Chest Chest palpation & inspection: normal inspection of the chest Resp Effort & Inspection: normal respiratory effort and able to speak in complete sentences Cardio Rate: regular rate GI Inspection: Yes normal to inspection (round ) General: Yes no CVA tenderness Back/Spine/Pelvis Back: no CVA tenderness Skin General skin exam: no rashes or lesions noted Neuro General: patient oriented x3 Extrem General: Yes normal to inspection Psych Appearance: grossly normal and well kempt Mental Status: mental status grossly normal Speech and movement: Normal speech and movement present and Clear speech present Affect: normal affect Attitude: cooperative Thought process: Normal thought process present Thought content: Normal thought content present Insight: Fair insight present (Psych) Judgement: Fair judgement present (Psych) Office Procedures Post Void Residual Post Residual Void Post Void Residual (PVR): 0 [id number] Void Residual by ultrasound Results AMB Urinalysis, Automated UA Leukoctes 0 Rose/uL Last Edit by [employer] on 09/08/24 14:45 UA Nitrite Last Edit by [employer] on 09/08/24 14:45 UA Urobilinogen 0.2 mg/dL Last Edit by [employer] on 09/08/24 14:45 UA Protein 15 mg/dL Last Edit by [employer] / [employer] on 09/08/24 14:45 UA pH 6.0 Last Edit by [employer] on 09/08/24 14:45 UA Blood 10 Jan/uL Last Edit by [employer] on 09/08/24 14:45 UA Specific [place] 1.020 Last Edit by [employer] / [employer] on 09/08/24 14:45 UA Ketone Last Edit by [employer] / [employer] on 09/08/24 14:45 UA Bilirubin 1 mg/dL Last Edit by [employer] / [employer] on 09/08/24 14:45 UA Glucose 0 mg/dL Last Edit by [employer] / [employer] on 09/08/24 14:45 Results Reviewed Results Reviewed: Laboratory Last Values Urine pH (Auto) 6.0 09/08/24 14:44 Specific [place] (Auto) 1.020 09/08/24 14:44 Urine Protein (Auto) 15 mg/dL 09/08/24 14:44 Glucose (UA)(Auto) 0 mg/dL 09/08/24 14:44 Urine Blood (Auto) 10 Jan/uL 09/08/24 14:44 Urine Bilirubin (Auto) 1 mg/dL 09/08/24 14:44 Urine Urobilinogen (Auto) 0.2 mg/dL 09/08/24 14:44 Leukocyte Esterase (Auto) 0 Rose/uL 09/08/24 14:44 Assessment & Plan Assessment & Plan (1) Interstitial cystitis: Comment: Prior hydrodistention Code(s): N30.10 - Interstitial cystitis (chronic) without hematuria Category: Medical (2) Microscopic hematuria: Code(s): R31.29 - Other microscopic hematuria Category: Medical (3) History of nicotine dependence: Code(s): Z87.891 - Personal history of nicotine dependence Category: Medical (4) Hypogonadism in male: Code(s): E29.1 - Testicular hypofunction Category: Medical Plan: Risks, benefits and alternatives to therapy were discussed. These include but are not limited to infection, bleeding, damage to local organs and tissues, need for further interventions. ? Anesthetic risks regarding cardiac arrhythmia, blood clots, and potential mortality were discussed. The patient understands the typical recovery time and the outpatient nature of the procedure. After consideration of these risks the patient gives full informed consent and they wish to move ahead with the procedure. Plan In office urinalysis results reviewed with the patient today; as noted above; will send for urine cytology. Recent labs reviewed with the patient today; as noted above. We discussed importance of taking medications as prescribed. Continue testosterone and Cialis as prescribed; refills provided We discussed potential causes of microscopic hematuria as well as further workup in risks and benefits of these interventions. Will obtain CT urogram for further assessment evaluation BUN and creatinine ordered for imaging We discussed importance of limiting/quitting nicotine dependence for overall health and well-being. He denies any bothersome urinary issues or concerns. He reports be happy with current voiding parameters. Will schedule for cystoscopy under sedation Follow-up in 3 months with labs to be completed prior; or sooner with any issues, concerns, and or questions Orders: Orders CT urogram 09/08/24 R31.0 - Gross hematuria Creatinine 09/08/24 R31.29 - Other microscopic hematuria, Z87.891 - Personal history of nicotine dependence Prostate Specific Antigen 3 Months E29.1 - Testicular hypofunction AMB Urinalysis Automated 09/08/24 Z13.9 - Encounter for screening, unspecified AMB Post Void Residual by ultrasound 09/08/24 R35.1 - Nocturia Blood Urea Nitrogen 09/08/24 N30.10 - Interstitial cystitis (chronic) without hematuria, R31.29 - Other microscopic hematuria, Z87.891 - Personal history of nicotine dependence Testosterone, Free/Total 3 Months E29.1 - Testicular hypofunction Complete Blood Count no Diff 3 Months E29.1 - Testicular hypofunction Urine Cytology 09/08/24 R31.29 - Other microscopic hematuria Medications: Refilled testosterone apply 3 pumps over max area - alternate shoulders on alternate days 3 pumps topical DAILY 30 days 75 grams 3RF E29.1 - Testicular hypofunction, R79.89 - Other specified abnormal findings of blood chemistry tadalafil (Cialis) [facility] [id number] 5 mg PO DAILY 90 days 90 tabs 3RF E29.1 - Testicular hypofunction Patient Instructions: The patient had an opportunity to ask questions regarding the treatment plan. All questions were answered. Physical exam, labs, and imaging were discussed and reviewed in detail. As well as risks, benefits, and discussion of treatment choices. No major barriers to understanding were identified. The patient expressed understanding and agreement with the above treatment plan. The patient was made aware they should contact our office by phone for worsening of their current condition, the appearance of new symptoms, or with any questions or concerns. Compliance is encouraged with any medications and follow up testing that is ordered. It is a privilege to be allowed the opportunity to participate in? your urological care.? Again, if you have any questions or concerns If you have any questions or concerns please do not hesitate to contact me. The office is [phone]. This note is constructed using voice recognition software. While every effort has been made to ensure accuracy customer service dispatcher errors may have been included. Yours sincerely, ALBERT Munroe- Coding Level of Care Code Est Pt Level 4 (89379) Diagnoses Interstitial cystitis N30.10 Microscopic hematuria R31.29 History of nicotine dependence Z87.891 Hypogonadism in male E29.1 CPT Codes Post Residual Void - PVR CPT Code: 90329-Hded Void Residual by ultrasound ([id number])
== END 2024-09-08 14:50 | disposition home or self-care (01) ==
LOC: HO.HUSH 13:22
PROVIDERS: PCP Physician Assistant; Visit Provider Nurse Practitioner Family
DX: Z13.9 Encounter for screening, unspecified (principal)

== ENCOUNTER 2024-09-08 13:22 | Outpatient (REF) | payer OTHER, SELFPAY ==
[2024-09-08 17:02] LABS: Urine Cytology See Pathology rpt
== END 2024-09-08 13:23 | disposition home or self-care (01) ==
LOC: HO.LNP 13:22
PROVIDERS: PCP Physician Assistant; Visit Provider Nurse Practitioner Family
DX: N30.11 Interstitial cystitis (chronic) with hematuria (principal); E29.1 Testicular hypofunction; R35.1 Nocturia; Z87.891 Personal history of nicotine dependence
CPT/HCPCS: 51798; 81003; 88112; 99212